=== PATIENT | female | born 1950 | race Caucasian/White ===

== ENCOUNTER 2016-11-19 08:37 | Emergency (ER) | payer BC, MEDICARE ==
[~2016-11-19] VITALS: Ht 149.9 cm; Wt 83.9 kg
[~2016-11-19 08:37] MED LIST: ACET-732 PO; ALLO300T2 PO; ASPI-558 PO; CALC600T86 PO; CYCL-208 PO; FERR324T4 PO; FOLI1TAB15 PO; HYDR-3995 PO; HYDR200T4 PO; MAGN400T6 PO; METO25TA3 PO; MORP30TA95 PO; MULT-33 PO; NYST10PO TOP; OMEG500C PO; OMEP20CA10 PO; OXYB5TAB25 PO; POLY17PO6 PO; PRED5TAB PO; [UNRECOGNIZED DRUG - CODE] PO
[2016-11-19 08:38] VITALS: TEMP 98.6; Ht 149.9 cm; Wt 83.9 kg
--- OUTSIDE RECORDS SUMMARY | 2016-11-19 08:41 | XMS REPORT | Continuity of Care Document ---
Author Author [facility] Organization [facility] Address Unknown Phone Unavailable Support Name Relationship Address Phone AMANDA GALLAGHER MD Caregiver [address] [place] [address] Unavailable BRADFORD VARELA MD Caregiver [address] [place] [address] Unavailable BRADFORD VARELA MD Caregiver [address] [place] [id number] Unavailable LAURAYAMINIKELVIN Next Of Kin [address] [place] [address] Insurance Providers Guarantor Jenny Wang Address [address] [place] [address] Email DENIED/NO TO PT [facility]AL [facility] Policy Number [id number] Subscriber's Name Ric Wang Relationship 01 Spouse Group Number [id number] Effective Date 15 Payer Medicare Policy Number [id number] Subscriber's Name Jenny Wang Relationship 18 Self Effective Date 93 Advance Directives Directive Response Recorded Date/Time Dr Jeffery Resuscitation Status Do Not Resuscitate 07/05/16 4:31pm Resuscitation Documents on File No 07/05/16 7:37pm DPOA for Healthcare Only Yes 07/05/16 7:37pm Living Will No 07/05/16 7:37pm Advanced Directive or Resuscitation Comments patient wants to be a DNR 7:37pm Problems Active Problems Medical Problem Onset Date Status Decubitus skin ulcer Unknown Fibromyalgia Unknown Fibromyalgia muscle pain Unknown Gout Unknown HTN (hypertension) Unknown Rheumatoid arthritis Unknown Rheumatoid lung disease Unknown Sjogren's disease Unknown UTI (urinary tract infection) Unknown Urinary incontinence Unknown Weakness generalized Unknown Medications Current Home Medications Medication Dose Units Route Directions Days Qty Instructions Start Date Acetaminophen (Tylenol) 500 Mg Tablet 500 Mg Oral As Needed 04/07 Acetaminophen/Hydrocodone Bitart (Wendel 10-325 Tablet) 10-325 Tablet 1-2 Tab Oral Every 6 Hours as needed for Pain 60 Tablet 07/20/16 Allopurinol 300 Mg Tablet 300 Mg Oral Daily 07/05/16 Aspirin (Aspir 81) 81 Mg Tablet. 81 Mg Oral Daily 04/07/10 Calcium Carbonate (Calcium) 600 Mg Tablet 600 Mg Oral Twice A Day 04/07/10 Cyclobenzaprine Hcl 10 Mg Tablet 10 Mg Oral Three Times A Day as needed for Prn Orders 04/07/10 Ferrous Sulfate 324 Mg Tablet. 324 Mg Oral Give With Breakfast 30 Tablet 07/20/16 Folic Acid 1 Mg Tablet 1 Mg Oral Twice A Day 60 Tablet 07/20/16 Hydroxychloroquine Sulfate 200 Mg Tablet 200 Mg Oral Twice Daily With Meals 60 Tablet 07/20/16 Magnesium Oxide 400 Mg Tablet 200 Mg Oral Daily 30 Tablet 07/20/16 Metoprolol Succinate (Toprol Xl) 25 Mg Tab.er.24h 25 Mg Oral Daily 30 Tablet 07/20/16 Morphine Sulfate (Morphine Sulfate Er) 30 Mg Tablet.er 60 Mg Oral Every 12 Hours 30 Days 07/20/16 Multivit,Ther Iron,Ca,Fa & Min (Thera-M Enhanced Tablet) 1 Tab Tablet 1 Tab Oral Daily 04/07/10 Nystatin 50,000,000 Unit Powder.ea. 1 Applic Topically Three Times A Day 10 Days 1 Tub 07/20/16 [place]-3 Fatty Acids (Fish Oil) 500 Mg Capsule. 1,000 Mg Oral Daily 04/07/10 Omeprazole 20 Mg Capsule. 20 Mg Oral Daily 07/05/16 Oxybutynin Chloride (Ditropan Xl) 5 Mg Tab.er.24 5 Mg Oral Daily 30 Days 30 Tablet 07/20/16 Polyethylene Glycol 3350 (Miralax) 17 Gm Powd.pack 17 Gm Oral Daily as needed for Prn Orders 07/01/16 Prednisone 5 Mg Tablet 5 Mg Oral Twice A Day 07/01/16 Sennosides (Senna) 8.6 Mg Tablet 17.2 Mg Oral Three Times A Day 04/07/10 Past Home Medications Medication Directions Ordered Status Acetaminophen/Hydrocodone Bitart (Wendel 10-325 Tablet) 10-325 Tablet, 1-2 Tab Oral Every 6 Hours as needed for Pain 07/05/16 Discontinued Ferrous Sulfate (Iron) 1 Tab Tablet, 65 Mg Oral Daily 04/07/10 Discontinued Folic Acid 0.4 Mg Tablet, 0.4 Mg Oral Twice A Day 04/07/10 Discontinued Furosemide 40 Mg Tablet, 40 Mg Oral Twice A Day 04/07/10 Discontinued Hydroxychloroquine Sulfate 200 Mg Tablet, 100 Mg Oral Bedtime 04/07/10 Discontinued Hydroxychloroquine Sulfate 200 Mg Tablet, 200 Mg Oral Every Morning 07/05/16 Discontinued Magnesium 250 Mg Tablet, 250 Mg Oral Daily 04/07/10 Discontinued Metoprolol Succinate 50 Mg Tab.er.24h, 50 Mg Oral Daily 07/05/16 Discontinued Morphine Sulfate (Morphine Sulfate Er) 30 Mg Tablet.er, 60 Mg Oral Every 12 Hours 07/05/16 Discontinued Potassium Chloride 10 Meq Capsule.sa, 10 Meq Oral Daily 04/07/10 Discontinued Social History Social History Problem Response Recorded Date/Time Onset Date Status Reason for Hospitalization Weakness 07/20/2016 12:49pm Not Applicable Not Applicable Has the pt used tobacco in the last 12 months No 07/05/2016 7:49pm Not Applicable Not Applicable Query Response Start Date Stop Date Smoking Status Never smoker Hospital Discharge Instructions Instructions: Care Instructions: Reason for Hospitalization: Weakness I was in the hospital because (patient own words): I was really weak. Discharge Diet: regular Discharge Activity: Up with assist Follow Up Appointments: Dr. Zoila Gallagher on 08/01/16 at 9:45 am for Hosp. follow-up. [address] [place] [address]. . Pending Lab / Results: No Pending Lab Patient Instructions: Continue with daily exercises Follow up with primary care physician within 2 weeks. Wound/Incision Care: Nystatin powder to bilateral abdominal folds. Mepilex with iodisorb and gauze to coccyx wound. Mepilex with aquacel silver and mepilex to right upper medial thigh. Durable Medical Equipment: No known equipment needed Pain Management/Treatment: Patient has narcotic prescription, and is stable with meds at this time. Expected Signs/Symptoms: Weakness Fatigue Pain Notify Physician If: you fall or are injured. Or if pain increases. During Business Hours:: Please call the physician's office at clinic number After Business Hours:: Please call [phone] and have the cell room operator page the physician. Condition at time of discharge: Good Plan of Care Discharge Date 07/20/16 1:15pm Disposition 03 TO [facility] NOT [facility] (SNF) Instructions/Education Provided Skin Wound Prescriptions See Medication Section Care Plan and Goals See Discharge Instructions Section Functional Status Query Response Date Recorded Mobility Status Transfer w/assist July 20, 2016 12:49pm Assistive Devices FWW AND WHEELCHAIR July 20, 2016 12:49pm Activity Limitations Weakness Pain July 20, 2016 12:49pm Feeding Ability Independent July 20, 2016 12:49pm Toileting Ability Assist July 20, 2016 12:49pm Grooming Ability Independent July 20, 2016 12:49pm Dressing Ability Assist July 20, 2016 12:49pm Driving Ability Dependent July 20, 2016 12:49pm Stair Climbing Ability Dependent July 20, 2016 12:49pm Ability to complete ADL's impeded by Impaired Mobility July 20, 2016 12:49pm Cognitive/Perceptual Impairments Impaired vision July 20, 2016 12:49pm Visual Assistive Devices Glasses With patient July 17, 2016 3:38pm Preferred Method of Learning Demonstration Listening July 17, 2016 3:38pm Allergies, Adverse Reactions, Alerts Allergen Type Severity Reaction Status Last Updated Clindamycin Allergy Mild JOINT PAIN Active 12/04/10 Azithromycin Allergy Mild JITTERS Active 12/04/10 Minocycline Allergy Unknown Active 12/04/10 Levofloxacin Allergy Mild JOINT PAIN Active 12/04/10 Immunizations Query Response on File Recorded Date/Time Hx Influenza Vaccination Y 04/201607/05/16 7:49pm Hx Pneumococcal Vaccination Y 04/201607/05/16 7:49pm Hx Influenza Vaccination Y 04/201607/05/16 7:49pm Influenza Vaccine Hx 04/201607/05/16 7:55pm Vital Signs Acute Vital Signs Vital Response Date/Time Temperature (Fahrenheit) 98.1 deg F (96.8 - 99.1) 07/20/2016 8:45am Temperature (Calculated Celsius) 36.19273 degrees C (36.0 - 37.3) 07/20/2016 8:45am Pulse Rate (adult) 76 bpm (60 - 100) 07/20/2016 8:45am Respiratory Rate 20 breaths/min (10 - 20) 07/20/2016 8:45am O2 Sat by Pulse Oximetry 95 % (90 - 100) 07/20/2016 8:45am Oxygen Delivery Method Nasal Cannula 07/19/2016 10:30pm Oxygen Delivery Method Room Air 07/20/2016 12:14am Oxygen Flow Rate 2.00 L/min 07/19/2016 10:30pm Blood Pressure 164/98 mm Hg 07/20/2016 8:45am Blood Pressure Source Automatic Cuff 07/20/2016 8:45am Height (Feet) 4 feet 07/18/2016 2:38pm Height (Inches) 10.00 inches 07/18/2016 2:38pm Weight (Kilograms) 79.000 kg 07/20/2016 12:15am Body Mass Index (BMI) 40.0 07/05/2016 7:34pm Results Laboratory Results Test Name Result Units Flags Reference Collection Date/Time Result Date/ Time Comments Neutrophils % (Manual) 65.0 % 33-66 07/04/2016 4:14am 07/04/2016 6: 04am Band Neutrophils % 1.0 % 0-6 07/02/2016 10:57am 07/02/2016 11:14am Lymphocytes % (Manual) 27.0 % 23-45 07/04/2016 4:14am 07/04/2016 6: 04am Monocytes % (Manual) 5.0 % 0-9.0 07/04/2016 4:14am 07/04/2016 6:04am Eosinophils % (Manual) 3.0 % 0-4 07/04/2016 4:14am 07/04/2016 6:04am Reactive Lymphocytes % 1.0 % H 0-0 07/02/2016 10:57am 07/02/2016 11: 14am Band Neutrophils # 0.1 T/MM3 07/02/2016 10:57am 07/02/2016 11:14am Absolute Neutrophils (Manual) 3.3 T/MM3 1.8-7.7 07/04/2016 4:14am 07/04 6:04am Lymphocytes # (Manual) 1.4 T/MM3 1-4.8 07/04/2016 4:14am 07/04/2016 6: 04am Monocytes # (Manual) 0.3 T/MM3 0-0.8 07/04/2016 4:14am 07/04/2016 6: 04am Eosinophils # (Manual) 0.2 T/MM3 0-0.5 07/04/2016 4:14am 07/04/2016 6: 04am Reactive Lymphocytes # 0.1 T/MM3 H 0-0 07/02/2016 10:57am 07/02/2016 11: 14am Red Cell Morphology Comment NORMAL 07/04/2016 4:1407/04/2016 6: 04am Anisocytosis 1+ 07/02/2016 10:57am 07/02/2016 11:14am Total Bilirubin 0.50 MG/DL 0.20-1.30 07/04/2016 4:1407/04/2016 4: 51am Alkaline Phosphatase 85 U/L 38-126 07/04/2016 4:1407/04/2016 4:51am Total Protein 5.2 G/DL L 6.3-8.2 07/04/2016 4:1407/04/2016 4:51am Albumin 2.4 G/DL L 3.5-5.0 07/04/2016 4:1407/04/2016 4:51am Globulin 2.8 G/DL 2.4-3.6 07/04/2016 4:1407/04/2016 4:51am Albumin/Globulin Ratio 0.9 RATIO L 1.1-2.2 07/04/2016 4:1407/04/2016 4:51am Aspartate Amino Transf (AST/SGOT) 40 U/L H 14-36 07/04/2016 4:1407/04 4:51am Alanine Aminotransferase (ALT/SGPT) 43 U/L 9-52 07/04/2016 4:1407/04 4:51am Procalcitonin 0.14 NG/ML 07/01/2016 1:13pm 07/01/2016 2:01pm PCT </= 0.5 ng/mL - sepsis not likely; PCT >0.5 and </=2 ng/mL - sepsis possible; PCT >2 ng/mL - sepsis likely; PCT >/=10 ng/mL - systemic inflammatory response - sepsis or septic shock highly indicated. Urine WBC 10-20 /HPF H 0-5 07/01/2016 1:08pm 07/01/2016 1:48pm Urine RBC 5-10 /HPF H 0-3 07/01/2016 1:08pm 07/01/2016 1:48pm Urine Squamous Epithelial Cells 0-5 07/01/2016 1:08pm 07/01/2016 1: 48pm Urine Bacteria 1+ H NEGATIVE 07/01/2016 1:08pm 07/01/2016 1:48pm Urine Culture Indicated CULT REFLEXED &SETUP 07/01/2016 1:08pm 1:48pm White Blood Count 6.1 T/MM3 4.5-11.0 07/06/2016 5:00am 07/06/2016 5: 43am Red Blood Count 3.84 M/MM3 L 4.00-5.20 07/06/2016 5:00am 07/06/2016 5: 43am Hemoglobin 12.4 GM/DL D 12-16 07/06/2016 5:00am 07/06/2016 5:43am Hematocrit 39.5 % 36-46 07/06/2016 5:00am 07/06/2016 5:43am Mean Corpuscular Volume 102.9 UM3 H 80-100 07/06/2016 5:00am 07/06/2016 5:43am Mean Corpuscular Hemoglobin 32.3 UUG 26-34 07/06/2016 5:00am 2016 5:43am Mean Corpuscular Hemoglobin Concent 31.4 GM/DL 31-37 07/06/2016 5:00am 07/06/2016 5:43am RDW Standard Deviation 53.0 FL H 36.9-50.2 07/06/2016 5:00am 07/06/2016 5:43am Platelet Count 176 T/MM3 130-400 07/06/2016 5:00am 07/06/2016 5:43am Mean Platelet Volume 11.2 UM3 9.4-12.4 07/06/2016 5:00am 07/06/2016 5: 43am Neutrophils (%) (Auto) 62.2 % 33-66 07/06/2016 5:00am 07/06/2016 5: 43am Lymphocytes (%) (Auto) 25.2 % 23-45 07/06/2016 5:00am 07/06/2016 5: 43am Monocytes (%) (Auto) 9.9 % H 0-9.0 07/06/2016 5:00am 07/06/2016 5:43am Eosinophils (%) (Auto) 2.3 % 0-4 07/06/2016 5:00am 07/06/2016 5:43am Basophils (%) (Auto) 0.2 % 0-2 07/06/2016 5:00am 07/06/2016 5:43am Immature Granulocyte % (Auto) 0.2 % 0.0-0.5 07/06/2016 5:00am 2016 5:43am Absolute Neutrophils (auto) 3.8 T/MM3 1.8-7.7 07/06/2016 5:00am 2016 5:43am Absolute Lymphocytes (auto) 1.6 T/MM3 1-4.8 07/06/2016 5:00am 2016 5:43am Absolute Monocytes (auto) 0.6 T/MM3 0-0.8 07/06/2016 5:00am 07/06/2016 5:43am Absolute Eosinophils (auto) 0.1 T/MM3 0-0.5 07/06/2016 5:00am 2016 5:43am Absolute Basophils (auto) 0.0 T/MM3 0-0.2 07/06/2016 5:00am 07/06/2016 5:43am Absolute Immature Granulocyte (auto 0.01 T/MM3 0.00-0.03 07/06/2016 5: 00am 07/06/2016 5:43am Icterus Index < 2 0-7 07/06/2016 5:00am 07/06/2016 5:38am Chemistry Specimen Hemolysis < 15 0-25 07/06/2016 5:00am 07/06/2016 5 :38am 0-25: Specimen Exhibited No Hemolysis. Turbidity < 20 0-20 07/06/2016 5:00am 07/06/2016 5:38am Sodium Level 141 MEQ/L 134-144 07/06/2016 5:00am 07/06/2016 5:38am Potassium Level 4.0 MEQ/L 3.6-5 07/06/2016 5:00am 07/06/2016 5:38am Chloride Level 104 MEQ/L 98-107 07/06/2016 5:00am 07/06/2016 5:38am Carbon Dioxide Level 32 MEQ/L H 22-30 07/06/2016 5:00am 07/06/2016 5: 38am Anion Gap 5 MEQ/L 5-15 07/06/2016 5:00am 07/06/2016 5:38am Blood Urea Nitrogen 9.0 MG/DL D 7-17 07/06/2016 5:00am 07/06/2016 5:47am Creatinine 0.6 MG/DL L 0.7-1.2 07/06/2016 5:00am 07/06/2016 5:38am BUN/Creatinine Ratio 15 RATIO 6-26 07/06/2016 5:00am 07/06/2016 5:38am Glomerular Filtration Rate Calc 100 07/06/2016 5:00am 07/06/2016 5: 38am Glucose Level 73 MG/DL 65-110 07/06/2016 5:00am 07/06/2016 5:38am Calculated Osmolality 269 MOSM/KG 261-280 07/06/2016 5:00am 07/06/2016 5:38am Calcium Level 9.5 MG/DL D 8.4-10.2 07/06/2016 5:00am 07/06/2016 5:47am Urine Collection Type VOIDED-NOT CC-MIDSTR 07/07/2016 1:24am 2016 1:32am Urine Color YELLOW YELLOW 07/07/2016 1:24am 07/07/2016 1:32am Urine Turbidity CLEAR CLEAR 07/07/2016 1:24am 07/07/2016 1:32am Urine Specific [place] 1.015 1.015-1.025 07/07/2016 1:24am 2016 1:32am Urine pH 8.0 5.0-8.0 07/07/2016 1:24am 07/07/2016 1:32am Urine Leukocyte Esterase NEGATIVE NEGATIVE 07/07/2016 1:24am 2016 1:32am Urine Nitrite NEGATIVE NEGATIVE 07/07/2016 1:24am 07/07/2016 1:32am Urine Protein NEGATIVE NEGATIVE 07/07/2016 1:24am 07/07/2016 1:32am Urine Glucose (UA) NEGATIVE NEGATIVE 07/07/2016 1:24am 07/07/2016 1: 32am Urine Ketones NEGATIVE NEGATIVE 07/07/2016 1:24am 07/07/2016 1:32am Urine Urobilinogen 0.2 EU/DL NORMAL 07/07/2016 1:24am 07/07/2016 1: 32am Urine Bilirubin NEGATIVE NEGATIVE 07/07/2016 1:24am 07/07/2016 1: 32am Urine Blood NEGATIVE NEGATIVE 07/07/2016 1:24am 07/07/2016 1:32am Urinalysis Comment MICROSCOPIC NOT IND. 07/07/2016 1:24am 2016 1:32am Microbiology Results Procedure Source Organism/Result Collection Date/Time Result Date/Time Result Status Blood Culture Peripheral/Iv Start NO GROWTH AFTER 5 DAYS 07/01/2016 1:13pm 07/06/2016 1:18pm Final Urine Culture Urine, Straight Cath ESCHERICHIA COLI 07/01/2016 1:48pm 07/2016 6:40am Final Procedures No known history of procedures. Encounters Encounter Location Arrival/Admit Date Discharge/Depart Date Attending Provider Discharged Inpatient [facility] 07/05/16 2:25pm 07/20/16 1:15pm BRADFORD VARELA MD Discharged Inpatient [facility] 07/02/16 1:52pm 07/05/16 2:24pm AMANDA GALLAGHER MD
--- OUTSIDE RECORDS SUMMARY | 2016-11-19 08:42 | XMS REPORT | Continuity of Care Document ---
Author Author [facility] Organization [facility] Address Unknown Phone Unavailable Allergies Medications Problems Procedures Results Encounters ACCT No. Visit Date/Time Discharge Status Pt. Type Provider Facility Loc./Unit Complaint [id number] 09/19/2013 09:07:00 09/19/2013 23 :59:59 CLS Outpatient
--- NOTE | 2016-11-19 08:56 | NUR ---
REPORT REC'D FROM EDD MORRISSEY. THIS RN WILL RESUME CARE.
[2016-11-19] MEDS ORDERED: METO-275 PO (09:04)
--- OUTSIDE RECORDS SUMMARY | 2016-11-19 09:05 | XMS REPORT | Continuity of Care Document ---
Author Author [facility] Organization [facility] Address Unknown Phone Unavailable Allergies Medications Problems Procedures Results Encounters ACCT No. Visit Date/Time Discharge Status Pt. Type Provider Facility Loc./Unit Complaint [id number] 09/19/2013 09:07:00 09/19/2013 23 :59:59 CLS Outpatient
[2016-11-19] MEDS ORDERED: SENN-152 PO (09:07)
[2016-11-19] MEDS ORDERED: FERR-70 PO (09:08)
[2016-11-19] MEDS ORDERED: HYDR200T4 PO ×2 (09:09)
[2016-11-19] MEDS ORDERED: FOLI1TAB15 PO (09:11)
[2016-11-19] MEDS ORDERED: MAGN400T6 PO (09:13)
[2016-11-19] MEDS ORDERED: MORP30TA95 PO (09:15)
[2016-11-19] MEDS ORDERED: HYDR-4078 PO (09:16)
[2016-11-19] MEDS ORDERED: MIRA25TA PO (09:20)
--- NOTE | 2016-11-19 09:22 | NUR ---
PROVIDER DR. NOLAN AT BEDSIDE FOR EXAM.
[2016-11-19 09:44] LABS: BASOPHILS % (AUTO) 0.2 % (0-2); EOSINOPHILS # (AUTO) 0.2 T/MM3 (0-0.5); EOSINOPHILS % (AUTO) 1.8 % (0-4); HGB - HEMOGLOBIN 15.9 GM/DL (12-16); IMMATURE GRANULOCYTE # (AUTO) 0.08 T/MM3 (0.00-0.03); IMMATURE GRANULOCYTE % (AUTO) 0.8 % (0.0-0.5); LYMPHOCYTES # (AUTO) 2.5 T/MM3 (1-4.8); LYMPHOCYTES % (AUTO) 26.7 % (23-45); MEAN CORPUSCULAR HGB 33.1 UUG (26-34); MEAN CORPUSCULAR HGB CONC(MCHC 31.8 GM/DL (31-37); MEAN CORPUSCULAR VOLUME 104.2 UM3 (80-100); MEAN PLATELET VOLUME 11.8 UM3 (9.4-12.4); MONOCYTES # (AUTO) 0.9 T/MM3 (0-0.8); MONOCYTES % (AUTO) 8.9 % (0-9.0); NEUTROPHILS #(AUTO)-ABSOLUTE 5.9 T/MM3 (1.8-7.7); NEUTROPHILS % (AUTO) 61.6 % (33-66); WBC - WHITE BLOOD COUNT 9.5 T/MM3 (4.5-11.0)
--- NOTE | 2016-11-19 09:46 | ERPDOC ---
Departure Disposition Decision Date: November 19, 2016 Disposition Decision Time: 11:30 Disposition: 02 TO [facility] Impression Impression Impression: Primary Impression: Ribs, multiple fractures Encounter type: initial encounter Fracture type: closed Laterality: bilateral Qualified Codes: S22.43XA - Multiple fractures of ribs, bilateral, initial encounter for closed fracture Additional Impression: Pelvic fracture Encounter type: initial encounter Pelvic bone location: unspecified part of pelvis Fracture type: closed Fracture alignment: nondisplaced Qualified Codes: S32.9XXA - Fracture of unspecified parts of lumbosacral spine and pelvis , initial encounter for closed fracture Severity: Moderate Condition: Improved Seen By: Physician only Referrals: AMANDA SO MD (Family) Problems/Meds/Labs Reviewed?: Yes Medications reviewed and manag: Yes Follow up care ordered?: Yes Mental Status: Alert, Oriented Critical Care Note Total Time (mins): 37 Critical Care Spent: [id number] care of pt, Reviewing test results, Discuss the case w/staff, Documenting the MR, Discussion w/ family/DPOA During this visit the pt was: At Risk of Deterioration HPI - General Medical General Chief Complaint: Chest Injury Stated Complaint: ABD PAIN Time Seen by Provider: 08:55 Source: patient, family Exam Limitations: no limitations HPI - General Medical Initial Comments 66-year-old female presents to the emergency department with a chief complaint of left upper quadrant pain. Patient has suffered 2 mechanical falls in the past week with the most recent being on of this past week. Patient has tripped getting out of her wheelchair each time. She denies striking her head, neck pain, or loss of consciousness. Patient notes moderate pain in the left upper quadrant. No radiation. Pain is sharp. Pain increases with movement and improves with rest and positioning and analgesia. Patient denies any other injuries. No other complaints or associated symptoms. Patient was at home when her symptoms began. Symptoms have been persistent in nature since onset. Patient is not anticoagulated. Occurred At: home Onset: Constant Allergies: Coded Allergies: azithromycin (Verified Allergy, Mild, JITTERS, 11/19/16) clindamycin (Verified Allergy, Mild, JOINT PAIN, 11/19/16) levofloxacin (Verified Allergy, Mild, JOINT PAIN, 11/19/16) levothyroxine (Verified Allergy, Unknown, 11/19/16) minocycline (Verified Allergy, Unknown, 11/19/16) Past History Patient Surgical History R heart cath 2006 MILE 1999 Colonoscopy 2008 Heart cath 1999 R total knee replacement Past Medical History Metabolic: gout, hypertension Respiratory: pulmonary embolus GI: GERD Neurological: fibromyalgia Musculoskeletal: rheumatoid arthritis Surgical History Cardiac: cardiac cath Joint: knee Family History Family PMH: FOUND: CHF, CVA, alcohol abuse, cancer, hypertension, other Vaccines Hx Influenza Vaccination: Yes (04/2016) Hx Pneumococcal Vaccination: Yes (04/2016) Social History Smoking Status: Never smoker Does patient use chewing tobac: No Substance Use Type: does not use Alcohol Intake: none Review of Systems Constitutional Constitutional: DENIES: chills, fever Eyes General: DENIES: erythema, exudate Lids/Accessories: DENIES: erythema, swelling Vision: DENIES: acuity, blurring ENMT Ears: DENIES: drainage, erythema Hearing: DENIES: hearing loss Balance: DENIES: ataxia, falling to one side Sinuses: DENIES: congestion, pain Nose: DENIES: nosebleeds, pain Mouth/Throat: DENIES: painful swallowing, sore throat Teeth: DENIES: pain Jaw: DENIES: pain Cardiovascular Cardiac: DENIES: chest pain, dyspnea on exertion Rhythm/Rate: DENIES: irregular beat, palpitations Vascular: DENIES: pedal edema, unilateral swelling Pulmonary Respiratory: DENIES: cough, dyspnea, pleuritic chest pain, sputum GI Upper Abdomen: pain, DENIES: nausea, vomiting Lower Abdomen: DENIES: diarrhea, pain General: DENIES: dysuria, frequency Musculoskeletal General: tenderness, DENIES: joint pain Integumentary Skin: DENIES: itching, rash Neurological General: DENIES: change in strength, headache, numbness, weakness Psychiatric Psychiatric: DENIES: emotional instability, suicidal ideation/attempt Endocrine Endocrine: DENIES: polydipsia, polyphagia Hematologic/Lymphatic Hematologic/Lymphatic: DENIES: frequent nosebleeds, lymphadenopathy Allergic/Immunological Allergic/Immunoligical: DENIES: allergic reactions, hives Physical Exam General General Nourishment: well nourished, well developed, appears stated age, no acute distress, adult General Body Habitus: well groomed Vitals and Pain First Documented Vital Signs Date Time Temp Pulse Resp B/P Pulse Ox O2 Delivery O2 Flow Rate FiO2 11/19/16 08:38 98.6 76 20 183/81 93 Room Air 11/19/16 10:03 2.00 Weight: Kilograms: 83.900 Height (feet): 4 Height (inches): 11.00 Triage Pain Scale: RN VS reviewed by Provider: Yes Normal Exams: Head: Normocephalic w/o trauma Eyes: Pupils are PERRLA w/ EOMI, No scleral icterus, irritation, or foreign bodies noted ENMT: No facial trauma, nasal exudates, pharyngeal erythema, or exudates are noted Dental: No fractured, loose, or missing teeth noted Neck: Full range of motion, without adenopathy, JVD, bruits or thyromegaly Chest/Resp: Clear all browne, with good airflow, and symmetry bilaterally CV: Regular rate and rhythm, without murmur or gallop, Pulses 2+ all extremities, capillary refill, <2 seconds all ext., no pedal edema noted Abdomen: Bowel sounds positive, non-distended, no hepatosplenomegaly, masses or bruits noted Lymphatic: No lymphadenopathy, or lymphedema noted Musculoskeletal: No tenderness, or deformity noted, good range of motion, all extremities Integumentary: No rashes, hives, or bruising noted, hair and nails, without abnormality Neurologic: Patient is alert, and oriented, cranial nerves, motor/sensory/ cerebellar, exams w/o gross deficits, to observation Psychiatric: Patient exhibits, appropriate attention, emotion and affect Abdomen (brief) Abdominal Brief: FOUND: soft Comments Soft. Mild left upper quadrant tenderness to palpation. No rebound or guarding. No CVA tenderness. Nondistended. Bowel sounds active. Musculoskeletal (brief) Comments L lateral ribs tender to palpation without crepitus. Pelvis - stable to compression. Differential Diagnoses Considering: Medication Effect, Metabolic, Other (abdominal pain, trauma) Progress Results/Orders Orders Procedure Category Date Status Time Cbc W/Auto LAB 11/19/16 Complete Diff-Reflex Manual Cmp - Comprehensive LAB 11/19/16 Complete Metabolic Lipase LAB 11/19/16 Complete Catheterize For Ua ALEXIS 11/19/16 In Process 09:28 Ua, Dip Wreflex LAB 11/19/16 Complete Microsc & Fagoting Machine Operator 09:28 EKG EKG 11/19/16 Logged Normal Saline (Ns) PHA 11/19/16 Complete 10:[address] 11/19/16 Taken Chest/Abdomen/Pelvis 10:08 Morphine Sulfate PHA 11/19/16 Complete (Morphine) 12:15 Ondansetron Inj PHA 11/19/16 Complete (Zofran) 12:15 Lab Results Laboratory Tests Test 11/19/16 08:20 11/19/16 10:29 White Blood Count 9.5T/MM3 Red Blood Count 4.80M/MM3 Hemoglobin 15.9GM/DL Hematocrit 50.0% Mean Corpuscular Volume 104.2UM3 Mean Corpuscular Hemoglobin 33.1UUG Mean Corpuscular Hemoglobin Concent 31.8GM/DL RDW Standard Deviation 57.8FL Platelet Count 198T/MM3 Mean Platelet Volume 11.8UM3 Immature Granulocyte % (Auto) 0.8% Neutrophils (%) (Auto) 61.6% Lymphocytes (%) (Auto) 26.7% Monocytes (%) (Auto) 8.9% Eosinophils (%) (Auto) 1.8% Basophils (%) (Auto) 0.2% Absolute Immature Granulocyte (auto 0.08T/MM3 Absolute Neutrophils (auto) 5.9T/MM3 Absolute Lymphocytes (auto) 2.5T/MM3 Absolute Monocytes (auto) 0.9T/MM3 Absolute Eosinophils (auto) 0.2T/MM3 Absolute Basophils (auto) 0.0T/MM3 Turbidity < 20 Sodium Level 146MEQ/L Potassium Level 4.6MEQ/L Chloride Level 100MEQ/L Carbon Dioxide Level 30MEQ/L Anion Gap 16MEQ/L Blood Urea Nitrogen 18.0MG/DL Creatinine 0.7MG/DL Glomerular Filtration Rate Calc 83 BUN/Creatinine Ratio 26RATIO Glucose Level 113MG/DL Calculated Osmolality 284MOSM/KG Calcium Level 9.3MG/DL Total Bilirubin 1.20MG/DL Icterus Index < 2 Aspartate Amino Transf (AST/SGOT) 76U/L Alanine Aminotransferase (ALT/SGPT) 98U/L Alkaline Phosphatase 162U/L Total Protein 7.4G/DL Albumin 4.3G/DL Globulin 3.1G/DL Albumin/Globulin Ratio 1.4RATIO Lipase 40U/L Chemistry Specimen Hemolysis 16 Urine Collection Type Straight cath Urine Color Yellow Urine Turbidity Clear Urine pH 7.5 Urine Specific [place] 1.010 Urine Protein Negative Urine Glucose (UA) Negative Urine Ketones Negative Urine Blood Negative Urine Nitrite Negative Urine Bilirubin Negative Urine Urobilinogen 0.2EU/DL Urine Leukocyte Esterase Negative Urinalysis Comment Microscopic not ind. Medications Current ED Medications Sodium Chloride (NS) 500 ml @ 999 mls/hr Q31M ONCE IV Last administered on 10:15; Start 11/19/16 at 10:00; Stop 11/19/16 at 10:36; Status DC Morphine Sulfate (Morphine) 4 mg O ONCE IV Last administered on 11/19/16 12: 17; Start 11/19/16 at 12:15; Stop 11/19/16 at 12:16; Status DC Ondansetron HCl (Zofran) 4 mg O ONCE IV Last administered on 11/19/16 12:15; Start 11/19/16 at 12:15; Stop 11/19/16 at 12:16; Status DC Progress Progress Labs / imaging were discussed in detail with the patient and questions are answered. Patient declined IV contrasted CT study. CT study reveals multiple rib and pelvic fractures. Patient is discussed with Dr. Miner who is in agreement with the current plan of management to transfer the patient to a Level 1 Trauma Center. Patient is given gentle IV hydration. She is given parental narcotic and antiemetic medications intravenously with improvement of symptoms. Patient is discussed with Dr. Forrest of [facility] who agrees to accept the patient as a trauma. Patient and family are in agreement with the current plan of management. Risks versus benefits of transfer is discussed in detail with the patient and family and questions are answered. Patient is stable for transfer to [facility] as a trauma patient. 37 minutes of critical care time was assessed to the patient due to complex medical decision-making, repeated assessment at the bedside, and the potential for decompensation. Patient is transferred to a Level I Trauma Center for further evaluation and treatment. EKG EKG : Rate: 60-100 Rhythm: sinus [place]: left QRS: normal Intervals: normal ST/T: normal Interpreted by: signing physician CT CT : CT: Chest no contrast Interpretation: Abnormal (CT chest/abdomen/pelvis: Rib fractures 3 through 10 on the right anteriorly and laterally. Right sided rib fractures 7, 8, 9. Pelvic fractures involving the left inferior pubic ramus, both superior pubic from eye and left iliac wing. Old right inferior pubic rami fracture. No other acute processes noted currently.), Faxed Report JOSSY NOLAN DO November 19, 2016 09:45
[2016-11-19 09:54] LABS: ALBUMIN 4.3 G/DL (3.5-5.0); ALBUMIN/GLOBULIN RATIO 1.4 RATIO (1.1-2.2); ALKALINE PHOSPHATASE 162 U/L (38-126); ALT (SGPT) 98 U/L (9-52); ANION GAP 16 MEQ/L (5-15); AST (SGOT) 76 U/L (14-36); BUN/CREATININE RATIO 26 RATIO (6-26); CALCIUM 9.3 MG/DL (8.4-10.2); CHLORIDE 100 MEQ/L (98-107); CO2 - CARBON DIOXIDE 30 MEQ/L (22-30); CREATININE 0.7 MG/DL (0.7-1.2); GLOMERULAR FILTRATION RATE 83; GLUCOSE 113 MG/DL (65-110); LIPASE 40 U/L (23-300); POTASSIUM 4.6 MEQ/L (3.6-5); SODIUM 146 MEQ/L (134-144); TOTAL PROTEIN 7.4 G/DL (6.3-8.2)
[2016-11-19] MEDS ORDERED: NORMAL SALINE 500 ML IV ONE (10:00)
--- NOTE | 2016-11-19 10:34 | NUR ---
CT PT TO CT BY CART AT THIS TIME.
[2016-11-19 10:36] LABS: BLOOD, URINE NEGATIVE (NEGATIVE); COLOR,URINE YELLOW (YELLOW); LEUKOCYTE ESTERASE ,URINE NEGATIVE (NEGATIVE); NITRITE,URINE NEGATIVE (NEGATIVE); UROBILINOGEN,URINE 0.2 EU/DL (NORMAL)
--- NOTE | 2016-11-19 10:46 | NUR ---
RETURN PT RETURNED FROM CT BY CART AT THIS TIME.
--- NOTE | 2016-11-19 10:47 | NUR ---
IVL CT REPORTS THAT IV ACCIDENTALLY PULLED OUT WHILE TRANSFERRING PT BACK TO BED. PROVIDER NOTIFIED. ORDERS REC'D TO HOLD ON RESTARTING IVL PER DR. NOLAN.
--- NOTE | 2016-11-19 11:43 | NUR ---
PROVIDER DR. NOLAN AT BEDSIDE TO SPEAK WITH PT AND FAMILY.
[2016-11-19] MEDS ORDERED: ONDANSETRON 4mg/2ml INJECTION IV ONE (12:15)
[2016-11-19] MEDS ORDERED: MORPHINE SULFATE 4 MG SYRINGE IV ONE (12:15)
--- NOTE | 2016-11-19 12:34 | NUR ---
REPORT CALLED TO EDD EDDY AT [facility]. DENIES QUESTIONS. ADVISED ETA OF APPROX 1315.
--- NOTE | 2016-11-19 12:37 | NUR ---
[facility] REQUESTED FOR TRANSFER TO [facility] AT THIS TIME.
--- NOTE | 2016-11-19 12:48 | NUR ---
EMS ARRIVED TO ER, RM 2 AT THIS TIME. REPORT GIVEN TO EMS PERSONNEL, DENY QUESTIONS.
[2016-11-19 12:56] VITALS: BP 190/82; PULSE 75; RESP 18; O2SAT 95
--- NOTE | 2016-11-19 12:56 | NUR ---
TRANSFER PT EXITS ER BY COT PER [facility] AT THIS TIME.
--- NOTE | 2016-11-20 11:38 | DI ---
Indication: ITS.REASON: fall three days ago with ongoing left abdominal pain PROCEDURE: CT CHEST/ABDOMEN/PELVIS W/O: Encounter: Subsequent Comparison: None Technique: Axial CT images were performed through the chest, abdomen and pelvis without intravenous contrast. Coronal and sagittal two-dimensional reformats. Automated Exposure Control and Iterative Reconstruction dose reducing techniques were utilized. Findings: Chest: No pneumothorax. Bilateral lower lobe atelectasis. No mediastinal hematoma. Heart is mildly enlarged. No pericardial effusion. Abdomen/pelvis: No free air or intraperitoneal hemorrhage. Gallstones within the mildly distended gallbladder. No obvious hepatic, splenic or renal laceration although evaluation is quite limited without IV contrast. Fatty replaced pancreas. No abdominal or pelvic lymphadenopathy. Fat-containing ventral hernia. No free fluid in the pelvis. No bowel obstruction. Bone windows show chronic bilateral inferior pubic ramus fractures with malunion on the left. Chronic appearing deformity in the left sacrum and iliac wing with malunion of fractures. Impression: No acute disease process seen. There is a preliminary report by [facility]. .
== END 2016-11-19 12:56 | disposition short-term general hospital (02) ==
LOC: ED 08:37
DX: S22.43XA Multiple fractures of ribs, bilateral, initial encounter for closed fracture (principal); S32.9XXA Fracture of unspecified parts of lumbosacral spine and pelvis, initial encounter for closed fracture; W01.0XXA Fall on same level from slipping, tripping and stumbling without subsequent striking against object, initial encounter; Y93.89 Activity, other specified; Y92.009 Unspecified place in unspecified non-institutional (private) residence as the place of occurrence of the external cause; Y99.8 Other external cause status
CPT/HCPCS: 51701; 71250; 74176; 80053; 81003; 83690; 85025; 93005; 96374; 96375; 99285; J2405

== ENCOUNTER 2017-09-17 12:15 | Inpatient (IN) ==
--- NOTE | 2017-09-17 13:05 | Emergency Department Report ---
General Adult HPI - General Chief complaint: Medical Emergency Stated complaint: fever,vomitting,cp,headache Time Seen by Provider: 09/17/17 13:05 - Related Data Home Medications Medication Instructions Recorded Confirmed Acetaminophen [Acetaminophen Extra 500 mg PO Q6H PRN 09/17/17 09/17/17 Strength] Albuterol/Ipratropium [Duoneb] 1 unit AEROSOL Q4H PRN 09/17/17 09/17/17 Alendronate [Fosamax] 70 mg PO Q7D 09/17/17 09/17/17 Allopurinol [Zyloprim] 300 mg PO NOON 09/17/17 09/17/17 Aspirin [Aspirin EC] 81 mg PO DAILY 09/17/17 09/17/17 Benzonatate [Tessalon Perles] 100 mg PO TID PRN 09/17/17 09/17/17 Calcium Carbonate 600 mg PO BID 09/17/17 09/17/17 Cholecalciferol (Vitamin D3) 1,000 unit PO DAILY 09/17/17 09/17/17 [Vitamin D3] Cyclobenzaprine [Flexeril] 10 mg PO TID PRN 09/17/17 09/17/17 Docusate Sodium [Colace] 100 mg PO NOON 09/17/17 09/17/17 Escitalopram Oxalate [Lexapro] 10 mg PO DAILY 09/17/17 09/17/17 Ferrous Sulfate [Iron] 325 mg PO WB 09/17/17 09/17/17 Folic Acid [Folate] 1 mg PO DAILY 09/17/17 09/17/17 Furosemide [Lasix 40 mg Tab] 40 mg PO DAILY 09/17/17 09/17/17 HydrOXYzine [Atarax] 25 mg PO HS 09/17/17 09/17/17 Hydrocodone/APAP 10/325 [[place] 2 tab PO HS 09/17/17 09/17/17 10/325] Hydrocodone/APAP 10/325 [[place] 2 tab PO Q4H PRN 09/17/17 09/17/17 10/325] Hydroxychloroquine [Plaquenil] 100 mg PO PM 09/17/17 09/17/17 Hydroxychloroquine [Plaquenil] 200 mg PO QAM 09/17/17 09/17/17 Loratadine [Claritin] 10 mg PO DAILY 09/17/17 09/17/17 Magnesium Hydroxide [Milk of 2,400 mg PO DAILY PRN 09/17/17 09/17/17 Magnesia] Methyl Salicylate/Menthol [Icy Hot 1 applicatio TP BID PRN 09/17/17 09/17/17 Cream] Metoprolol Succinate [Toprol Xl] 25 mg PO DAILY 09/17/17 09/17/17 Mirabegron [Myrbetriq] 25 mg PO HS 09/17/17 09/17/17 Morphine Sulfate 30 mg PO Q3H PRN 09/17/17 09/17/17 Morphine Sulfate [Morphine Sulfate 60 mg PO BID 09/17/17 09/17/17 ER] Multivitamin [One Daily] 1 tab PO WS 09/17/17 09/17/17 Nitrofurantoin. [Macrobid] 100 mg PO DAILY 09/17/17 09/17/17 Nystatin Cream [Mycostatin] 1 applicatio TP BID PRN 09/17/17 09/17/17 [place]-3/Dha/Epa/Fish Oil [Fish Oil 1,000 mg PO HS 09/17/17 09/17/17 1,000 mg Softgel] Omeprazole 20 mg PO ACB 09/17/17 09/17/17 Ondansetron HCl [Zofran] 4 mg PO Q6H PRN 09/17/17 09/17/17 PE/Shark Liver Oil/Glyc/Wh.pet 1 applicatio RECTALLY QID PRN 09/17/17 09/17/17 [Hemorrhoidal Cream] Peg 3350 238 G Bottle [Miralax] 8.6 gm PO DAILY 09/17/17 09/17/17 Peg 3350 238 G Bottle [Miralax] 17 gm PO DAILY PRN 09/17/17 09/17/17 PredniSONE [Deltasone 2.5 mg] 2.5 mg PO PM 09/17/17 09/17/17 PredniSONE [Deltasone 5 mg] 5 mg PO QAM 09/17/17 09/17/17 Allergies Allergy/AdvReac Type Severity Reaction Status Date / Time azithromycin Allergy Mild JITTERS Verified 09/17/17 12:40 clindamycin Allergy Mild JOINT PAIN Verified 09/17/17 12:40 levofloxacin Allergy Mild JOINT PAIN Verified 09/17/17 12:40 minocycline Allergy Unknown Verified 09/17/17 12:40 lidocaine Allergy Verified 09/17/17 13:08 levothyroxine Allergy Unknown Uncoded 09/17/17 12:40 [facility] Patient Stated Medical History Sepsis Yes: UROSEPSIS Course Vital Signs Temperature 99.3 F 09/17/17 12:39 Pulse Rate 72 09/17/17 12:39 Respiratory Rate 22 09/17/17 12:39 Blood Pressure 133/64 09/17/17 12:39 Pulse Oximetry 88 L 09/17/17 12:39 Temperature 97.6 F 09/17/17 15:32 Pulse Rate 75 09/17/17 15:32 Respiratory Rate 18 09/17/17 15:32 Blood Pressure 104/52 09/17/17 15:32 Pulse Oximetry 93 09/17/17 15:32 Medical Decision Making - Lab Data Result diagrams: 09/17/17 13:36 09/17/17 13:36 Lab Results 09/17/17 09/17/17 09/17/17 Range/Units 13:36 13:36 13:36 WBC 13.8 H (4.5-11.0) T/MM3 RBC 4.52 (4.00-5.20) M/MM3 Hgb 14.6 (12-16) GM/DL Hct 47.1 H (36-46) % MCV 104.2 H (80-100) UM3 MCH 32.3 (26-34) UUG MCHC 31.0 (31-37) GM/DL RDW Std Deviation 58.5 H (36.9-50.2) FL Plt Count 108 L (130-400) T/MM3 MPV 11.3 (9.4-12.4) UM3 Immature Gran % (Auto) Not performed Neut % (Auto) Not performed Lymph % (Auto) Not performed [place] % (Auto) Not performed Eos % (Auto) Not performed Baso % (Auto) Not performed Neut # (Auto) Not performed Lymph # (Auto) Not performed [place] # (Auto) Not performed Eos # (Auto) Not performed Baso # (Auto) Not performed Abs Immat Gran (auto) Not performed Neutrophils % (Manual) 85.0 H (33-66) % Band Neutrophils % 3.0 (0-6) % Lymphocytes % (Manual) 5.0 L (23-45) % Monocytes % (Manual) 7.0 (0-9.0) % Neutrophils # (Manual) 11.7 H (1.8-7.7) T/MM3 Band Neutrophils # 0.4 T/MM3 Lymphocytes # (Manual) 0.7 L (1-4.8) T/MM3 Monocytes # (Manual) 1.0 H (0-0.8) T/MM3 Macrocytosis 1+ RBC Morph Comment Abnormal D-Dimer 413 H (0-230) NG/ML Turbidity < 20 (0-20) Sodium 139 (134-144) MEQ/L Potassium 3.4 L (3.6-5) MEQ/L Chloride 98 (98-107) MEQ/L Carbon Dioxide 31 H (22-30) MEQ/L Anion Gap 10 (5-15) MEQ/L BUN 16.0 (7-17) MG/DL Creatinine 0.7 (0.7-1.2) mg/dL GFR Calculation 83 BUN/Creatinine Ratio 23 (6-26) RATIO Glucose 89 (65-110) MG/DL Calculated Osmolality 268 (261-280) MOSM/KG Calcium 8.4 (8.4-10.2) MG/DL Total Bilirubin 1.20 (0.20-1.30) MG/DL Icterus Index < 2 (0-7) AST 56 H (14-36) U/L ALT 50 H (1-35) U/L Alkaline Phosphatase 122 (38-126) U/L Troponin I < 0.012 (0-0.12) ng/ml NT-Pro-B Natriuret Pep 522 H (0-175) pg/mL Total Protein 6.7 (6.3-8.2) g/dL Albumin 3.6 (3.5-5.0) g/dL Globulin 3.1 (2.4-3.6) G/DL Albumin/Globulin Ratio 1.2 (1.1-2.2) RATIO Plasma Lactate 2.2 (0.6-2.2) MMOL/L Specimen Hemolysis < 15 (0-25) Disposition Clinical Impression: Pneumonia of both lower lobes Qualifiers: Pneumonia type: due to unspecified organism Qualified Code(s): J18.1 - Lobar pneumonia, unspecified organism Disposition: To [facility] Acute Care Condition: Stable - Seen By: physician
[2017-09-17] MEDS ORDERED: NITROGLYCERIN 0.4 MG SUBLINGUAL TABLET SL PRN (13:10)
[2017-09-17] MEDS ORDERED: ASPIRIN 81 MG CHEWABLE TABLET PO ONE (13:10)
[2017-09-17] MEDS: SALINE FLUSH 10ml SYRINGE IVF PRN ×4 (13:25→18:30)
[2017-09-17] MEDS ORDERED: MORPHINE SULFATE 4mg INJECTION IVP ONE (13:26)
[2017-09-17] MEDS ORDERED: CEFEPIME 1 GM in NS 100 ML IV ONE (14:35)
[2017-09-17] MEDS ORDERED: SALINE FLUSH 10ml SYRINGE ONE (14:42)
[2017-09-17] MEDS ORDERED: IOHEXOL 350mg/ml 75ml INJECTION ONE (14:42)
[2017-09-17 15:36] VITALS: BMI 42.0
[2017-09-17] MEDS ORDERED: VANCOMYCIN - PHARMACY CONSULT MC ONE (15:47)
[2017-09-17] MEDS ORDERED: MORPHINE SULFATE 4mg INJECTION IVP PRN (15:47)
[2017-09-17] MEDS ORDERED: ONDANSETRON 4 MG/2 ML INJECTION IVP PRN (15:47)
[2017-09-17] MEDS ORDERED: VANCOMYCIN 1,250 MG in NS 500ml 500 ML IV ONE (15:47)
[2017-09-17] MEDS ORDERED: FUROSEMIDE 20 MG/2 ML INJECTION IVP ONE (15:51)
[2017-09-17] MEDS ORDERED: ALBUTEROL/IPRATROPIUM 2.5mg-0.5mg/3ml NEB AEROSOL PRN (15:51)
[2017-09-17] MEDS ORDERED: ACETAMINOPHEN 500 MG TABLET PO PRN (15:51)
--- NOTE | 2017-09-17 16:02 | History & Physical Report ---
History of Present Illness Date: 09/17/17 Chief complaint: fever, weakness, vomiting HPI: Shani is a pleasant 67 yo WF who resides in a NH due to chronic disability from severe RA. She reports not feeling well that started fairly suddenly last night. Reports onset of fever, as well as vomiting and cough. She presented to the ED today, where concern for pneumonia was identified. She is being admitted for further evaluation and treatment. 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 Fidencio Malloy for pulmonology. She has RA, Rheumatoid lung disease, and Sjogrens and follows with Dr. Mona Zavala. She has not been on injectables for her autoimmune conditions for the last 6-7 years as they were no longer effective. I d/w pt family. Pt. did have influenza A at the end of July- she was really fairly asymptomatic. She only had a fever, but no cough or other symptoms. Daughter reports that she has been very weak the last week- she normally transfers well, but has difficulty transferring and has not been able to leave the NH. She has also been c/o increasing fatigue as well. Patient was unable to determine if fever and cough began before vomiting or not "it all started at once." Daughter confirmed that she and pt are DPOA; Patient is a full code. Review of Systems All systems PM: 10-point ROS was reviewed, no additional remarkable complaints except - Constitutional Constitutional: Present: fatigue, fever(s), headache(s), lethargy, malaise, weakness - Cardiovascular Cardiovascular: Present: dyspnea on exertion, edema. Absent: chest pain, hx of rheumatic fever Rhythm: Present: regular rhythm Vascular: Present: pedal edema - Respiratory Respiratory: Present: cough, dyspnea, dyspnea on exertion. Absent: pain on inspiration - Gastrointestinal Gastrointestinal: Present: nausea, vomiting. Absent: abdominal pain - Musculoskeletal Musculoskeletal: Present: arthralgias, back pain (Daughter reports pt c/o increasing back pain for last week. ), deformity, limited range of motion, muscle weakness, myalgias - Neurological Neurological: Present: abnormal gait, headache(s) Past Medical History Rheumatoid Arthritis Fibromyalgia syndrome HTN Gout GERD Rheumatoid Lung disease Chronic hypoxemia Sjogrens Surgical History: Right heart cath 2006. MILE. Colonoscopy. Heart cath 1999. Right knee Family History Updates: both brothers have DM2. Rheumatoid arthritis/FMS- daughter. - Social History Smoking status: Never smoker Substance use type: does not use Alcohol intake frequency: does not drink Household members: spouse, family Current occupational status: disabled Current residence: [place] Medications Home Medications Medication Instructions Recorded Confirmed Type Acetaminophen [Acetaminophen Extra 500 mg PO Q6H PRN 09/17/17 09/17/17 History Strength] Albuterol/Ipratropium [Duoneb] 1 unit AEROSOL Q4H PRN 09/17/17 09/17/17 History Alendronate [Fosamax] 70 mg PO Q7D 09/17/17 09/17/17 History Allopurinol [Zyloprim] 300 mg PO NOON 09/17/17 09/17/17 History Aspirin [Aspirin EC] 81 mg PO DAILY 09/17/17 09/17/17 History Benzonatate [Tessalon Perles] 100 mg PO TID PRN 09/17/17 09/17/17 History Calcium Carbonate 600 mg PO BID 09/17/17 09/17/17 History Cholecalciferol (Vitamin D3) 1,000 unit PO DAILY 09/17/17 09/17/17 History [Vitamin D3] Cyclobenzaprine [Flexeril] 10 mg PO TID PRN 09/17/17 09/17/17 History Docusate Sodium [Colace] 100 mg PO NOON 09/17/17 09/17/17 History Escitalopram Oxalate [Lexapro] 10 mg PO DAILY 09/17/17 09/17/17 History Ferrous Sulfate [Iron] 325 mg PO WB 09/17/17 09/17/17 History Folic Acid [Folate] 1 mg PO DAILY 09/17/17 09/17/17 History Furosemide [Lasix 40 mg Tab] 40 mg PO DAILY 09/17/17 09/17/17 History HydrOXYzine [Atarax] 25 mg PO HS 09/17/17 09/17/17 History Hydrocodone/APAP 10/325 [Bandy 2 tab PO HS 09/17/17 09/17/17 History 10/325] Hydrocodone/APAP 10/325 [Bandy 2 tab PO Q4H PRN 09/17/17 09/17/17 History 10/325] Hydroxychloroquine [Plaquenil] 100 mg PO PM 09/17/17 09/17/17 History Hydroxychloroquine [Plaquenil] 200 mg PO QAM 09/17/17 09/17/17 History Loratadine [Claritin] 10 mg PO DAILY 09/17/17 09/17/17 History Magnesium Hydroxide [Milk of 2,400 mg PO DAILY PRN 09/17/17 09/17/17 History Magnesia] Methyl Salicylate/Menthol [Icy Hot 1 applicatio TP BID PRN 09/17/17 09/17/17 History Cream] Metoprolol Succinate [Toprol Xl] 25 mg PO DAILY 09/17/17 09/17/17 History Mirabegron [Myrbetriq] 25 mg PO HS 09/17/17 09/17/17 History Morphine Sulfate 30 mg PO Q3H PRN 09/17/17 09/17/17 History Morphine Sulfate [Morphine Sulfate 60 mg PO BID 09/17/17 09/17/17 History ER] Multivitamin [One Daily] 1 tab PO WS 09/17/17 09/17/17 History Nitrofurantoin. [Macrobid] 100 mg PO DAILY 09/17/17 09/17/17 History Nystatin Cream [Mycostatin] 1 applicatio TP BID PRN 09/17/17 09/17/17 History Anthony-3/Dha/Epa/Fish Oil [Fish Oil 1,000 mg PO HS 09/17/17 09/17/17 History 1,000 mg Softgel] Omeprazole 20 mg PO ACB 09/17/17 09/17/17 History Ondansetron HCl [Zofran] 4 mg PO Q6H PRN 09/17/17 09/17/17 History PE/Shark Liver Oil/Glyc/Wh.pet 1 applicatio RECTALLY QID PRN 09/17/17 09/17/17 History [Hemorrhoidal Cream] Peg 3350 238 G Bottle [Miralax] 8.6 gm PO DAILY 09/17/17 09/17/17 History Peg 3350 238 G Bottle [Miralax] 17 gm PO DAILY PRN 09/17/17 09/17/17 History PredniSONE [Deltasone 2.5 mg] 2.5 mg PO PM 09/17/17 09/17/17 History PredniSONE [Deltasone 5 mg] 5 mg PO QAM 09/17/17 09/17/17 History Allergies Allergy/AdvReac Type Severity Reaction Status Date / Time azithromycin Allergy Mild JITTERS Verified 09/17/17 12:40 clindamycin Allergy Mild JOINT PAIN Verified 09/17/17 12:40 levofloxacin Allergy Mild JOINT PAIN Verified 09/17/17 12:40 minocycline Allergy Unknown Verified 09/17/17 12:40 lidocaine Allergy Verified 09/17/17 13:08 levothyroxine Allergy Unknown Uncoded 09/17/17 12:40 Exam Vital Signs: Temperature 97.6 F 09/17/17 15:32 Pulse Rate 75 09/17/17 15:32 Respiratory Rate 18 09/17/17 15:32 Blood Pressure 104/52 09/17/17 15:32 Pulse Oximetry 93 09/17/17 15:32 Height/Weight/BMI: Height 1.47 m Weight 91.4 kg Body Mass Index 42.0 - Constitutional Present: mild distress, obese, cooperative - Routine HEENT Exam Head: Present: normocephalic, atraumatic, cushingoid faces Eye: Present: EOMI, PERRL ENT: Present: mucous membranes dry - Routine Neck Exam Present: supple. Absent: normal carotid upstroke (Bounding carotid pulse visible), thyromegaly - Routine Respiratory Exam Present: decreased breath sounds, distant breath sounds. Absent: rales, wheezes Comments: Limited due to disability, anterior exam - Routine Cardiovascular Exam Present: RRR, S1, S2, no murmur - Routine Abdominal Exam Present: soft, normoactive bowel sounds, non distended, non tender - Routine Extremities Exam Present: edema (pitting edema to mid calf). Absent: full ROM - Routine Skin Exam Present: intact, dry, warm - Routine Neurological Exam Present: alert, oriented X3 - Routine Psychiatric Exam Present: normal affect, normal thought process, cooperative (chronic contractures, disability from RA) Results - Labs CBC & Chem 7: 09/17/17 13:36 09/17/17 13:36 - Echocardiogram History of Echocardiogram: IMPRESSION. 1. Normal LV systolic function with ejection fraction of 55%. 2. Left ventricular hypertrophy. 3. Mitral annulus calcification with mild mitral regurgitation. 4. Aortic sclerosis. 5. Trace of tricuspid regurgitation with normal estimated pulmonary artery systolic pressure of 15. 6. Trace of pulmonary insufficiency. - Imaging and Cardiology Chest x-ray Status: image reviewed by me, pending Additional comments: Significant posterior infiltrate. CT scan - chest Status: image reviewed by me Additional comments: Bibasilar and RML infiltrates. 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 CTA obtained, which confirmed the infiltrate. Start Cefepime, Vanco. Avoid Levaquin due to allergy. nebs, O2 and monitoring; order Tele. Start sepsis protocol for aggressive monitoring and IV antibiotic therapy. She appears fluid overloaded-Will provide single dose of IV Lasix and replace potassium. May need to restart home Lasix if BP remains stable. Prior echo OK. Will hold off on additional IVF for now, but may need to add supportive IVF given risk of infection. Continue home medications as appropriate for chronic pain. Will hold short acting oral morphine as she required IV morphine in the ER- will allow IV morphine for PRN breakthrough pain. Continue PPI for GERD. Lovenox for DVT px. Full code was confirmed by daughter. DVT Prophylaxis: Lovenox GI Prophylaxis: Protonix (PPI) Resuscitation Status: Full Code - Physician Narrative Physician: Stella Minor MD Narrative: Date: 09/17/17 Time: 1899 I have independently evaluated and examined this patient. I reviewed the chart, the patient's history, and the HAND ROUTER OPERATOR/PA's documented findings as above. We discussed and formulated the assessment and plan as above with additions as below: Shani was seen with her daughter at bedside. She describes 1 week history minor cough and dyspnea which worsened significantly over the past 24 hours when she developed GI symptoms as described above in conjunction with temperature of 101 this morning at [facility], worsening hypoxia ( chronically on nocturnal oxygen but generally does not require oxygen during the day), headache, and mild vertigo/lightheadedness earlier today which has subsequently resolved. She denies pleuritic pain or hemoptysis. She denied rigors. Oxygen saturation on arrival in the emergency room was 88%, unclear if on oxygen at the time or not. Chest x-ray demonstrated infiltrates which were confirmed and more extensive on CT then standard chest x-ray suggested. No evidence of PE. NAD, fluent speech, cooperative Respirations nonlabored, fair airflow, inspiratory/expiratory crackles 1/2 up posteriorly right lung field posteriorly, 1/3 up left field posteriorly; no wheezing appreciated. 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 Mild leukocytosis present, potassium 3.4, minor elevation in transaminases. Antibiotics as above-previously discussed with Amy. Potassium being supplemented. Chronic steroid use-continue prednisone but increase dose to 20 mg daily with titration over the next 2-3 days to usual dose of 7.5 mg daily provided respiratory status permits. Discussed with Dr. Abraham. Hospital Course Summary Disclaimer: The visit summary below is not to be considered part of the above Progress Note. Hospital Course: Impression: <PCP: Elliott> HCAP Acute on chronic respiratory failure Chronic lung disease Rheumatoid arthritis with rheumatoid lung disease Sjgren's Chronic pain/Fibromyalgia Fluid overload Chronic peripheral edema Gout GERD HTN Plan: 09/17/17 Admit Inpatient. CTA obtained, which confirmed the infiltrate. Start Cefepime, Vanco. Avoid Levaquin due to allergy. nebs, O2 and monitoring; order Tele. Start sepsis protocol for aggressive monitoring and IV antibiotic therapy. She appears fluid overloaded-Will provide single dose of IV Lasix and replace potassium. May need to restart home Lasix if BP remains stable. Prior echo OK. Will hold off on additional IVF for now, but may need to add supportive IVF given risk of infection. Continue home medications as appropriate for chronic pain. Will hold short acting oral morphine as she required IV morphine in the ER- will allow IV morphine for PRN breakthrough pain. Continue PPI for GERD. Lovenox for DVT px. Full code was confirmed by daughter.
[2017-09-17] MEDS: HYDROCODONE/APAP 10 MG/325 MG TABLET PO PRN (16:54)
[2017-09-17] MEDS: ALBUTEROL/IPRATROPIUM 2.5mg-0.5mg/3ml NEB AEROSOL SCH (19:11)
[2017-09-17] MEDS: CEFEPIME 1 GM in NS 100 ML IV SCH (21:16)
[2017-09-17] MEDS: HYDROCODONE/APAP 10 MG/325 MG TABLET PO SCH (21:17)
[2017-09-17] MEDS: MIRABEGRON 25mg TABLET PO SCH (21:18)
[2017-09-17] MEDS: CALCIUM CARBONATE 600 MG TABLET PO SCH (21:18)
[2017-09-17] MEDS: PredniSONE 10 MG TABLET PO SCH (21:18)
[2017-09-18] MEDS: CEFEPIME 1 GM in NS 100 ML IV SCH (03:00)
[2017-09-18] MEDS: HYDROCODONE/APAP 10 MG/325 MG TABLET PO PRN ×2 (06:26→14:19)
[2017-09-18] MEDS: LORATADINE 10 MG TABLET PO SCH (06:27)
[2017-09-18] MEDS: OMEPRAZOLE 20 MG CAPSULE PO SCH (07:28)
[2017-09-18] MEDS ORDERED: METHYL SALICYLATE/MENTHOL OINT 28gm TP PRN (07:30)
--- NOTE | 2017-09-18 07:43 | XRay Report ---
INDICATION: shortness of air chest pain not feeling well PROCEDURE: CHEST 2-VIEWS UPRIGHT (PA & LAT) Encounter: Initial COMPARISON: Chest CT dated September 17, 2017 FINDINGS: Lower lobe airspace consolidation is noted on the lateral view as seen on the chest CT upper lung browne are clear. There is no pleural effusion or pneumothorax. The heart size, mediastinal contours and pulmonary vascularity are within normal limits. IMPRESSION: Lower lobe pneumonia or aspiration. .
--- NOTE | 2017-09-18 07:43 | CT Scan Report ---
Indication: elevated d-dimer shortness of air rule out pulmonary embolus PROCEDURE: CT angio pulm emboli: Encounter: Initial Comparison: Chest x-ray from the same date Technique: Axial CT pulmonary angiographic phase images were performed through the chest after the administration of intravenous contrast. Coronal and Sagittal MIP reconstructed images were created and reviewed. Automated Exposure Control and Iterative Reconstruction dose reducing techniques were utilized. Contrast: Omnipaque 350 74 mL Findings: Pulmonary arteries: Exam is diagnostic to the subsegmental pulmonary arterial level. No filling defects identified to suggest a pulmonary embolus. Other findings: Airspace consolidation in both lower lobes, left greater than right. Small amounts of airspace disease in the right middle lobe as well. No pneumothorax or pulmonary mass. No axillary or mediastinal adenopathy. Heart size is normal. No pericardial effusion. The upper abdomen shows no acute findings. Impression: No pulmonary embolus. Lower lobe pneumonia or aspiration. There is a preliminary report by virtual radiologic. .
[2017-09-18] MEDS: CEFEPIME 1 GM in NS 50 ML IV SCH ×3 (08:22→19:50)
[2017-09-18] MEDS: CYCLOBENZAPRINE 10 MG TABLET PO PRN (09:20)
[2017-09-18] MEDS: FUROSEMIDE 40 MG TABLET PO SCH (09:20)
[2017-09-18] MEDS: PredniSONE 10 MG TABLET PO SCH (09:20)
[2017-09-18] MEDS: CALCIUM CARBONATE 600 MG TABLET PO SCH ×2 (09:20→21:05)
[2017-09-18] MEDS: FOLIC ACID 1 MG TABLET PO SCH (09:21)
[2017-09-18] MEDS: FERROUS SULFATE 324 MG TABLET PO SCH (09:21)
[2017-09-18] MEDS: ASPIRIN *EC* 81 MG TABLET PO SCH (09:21)
[2017-09-18] MEDS: ESCITALOPRAM 10 MG TABLET PO SCH (09:21)
[2017-09-18] MEDS: ENOXAPARIN 40 MG/0.4 ML INJECTION SQ SCH (09:21)
[2017-09-18] MEDS: POLYETHYL GLYCOL 3350 17gm PACKET PO SCH (09:21)
[2017-09-18] MEDS: BENZONATATE 100 MG CAPSULE PO PRN (09:33)
[2017-09-18] MEDS: ALBUTEROL/IPRATROPIUM 2.5mg-0.5mg/3ml NEB AEROSOL SCH ×4 (09:37→20:10)
--- NOTE | 2017-09-18 11:54 | Pharmacy Consult-Antibiotics ---
Pharmacy Consult-Vancomycin - Laboratory Information WBC 20.5 T/MM3 (4.5-11.0) H D 09/18/17 04:44 BUN 19.0 MG/DL (7-17) H 09/18/17 04:44 Creatinine 0.8 mg/dL (0.7-1.2) 09/18/17 04:44 Procalcitonin 7.01 NG/ML H* 09/18/17 04:44 - Consult Information VANCOMYCIN CONSULT: 67 yr old female patient 4'10" 91.1 kg who resides in a [place] Dx: Sepsis Current Renal Fx: SCr = 0.8 mg/dl. Will give Vancomycin 1750 mg IV q24hrs. Will continue to monitor and adjust regimen to maintain therapeutic levels. Thank you. Ana Laura Heller, PharmD
[2017-09-18] MEDS: ALLOPURINOL 300 MG TABLET PO SCH (12:01)
[2017-09-18] MEDS: DOCUSATE SODIUM 100 MG CAPSULE PO SCH (12:01)
[2017-09-18] MEDS ORDERED: FALL RISK - PHARMACY CONSULT XX ONE (15:38)
[2017-09-18] MEDS: SALINE FLUSH 10ml SYRINGE IV PRN (19:51)
[2017-09-18] MEDS: NS FLUSH BAG 500ml IV PRN (19:53)
--- NOTE | 2017-09-18 20:08 | Progress Note ---
- Date 09/18/17 Subjective: Mrs. Wang reports that she is breathing somewhat more comfortably today; cough is improving and there is been minimal sputum production. Breathing treatments are helping. She denies recurrent sensation of fevers and has not chilled. She denied chest pain, palpitations, nausea, or diarrhea. She is voiding spontaneously and without dysuria. She complains of generalized myalgias and arthritis pain. Objective Vital signs: Temperature 98.8 F 09/18/17 17:00 Pulse Rate 64 09/18/17 17:00 Respiratory Rate 16 09/18/17 17:00 Blood Pressure 128/67 09/18/17 17:00 Pulse Oximetry 94 09/18/17 17:00 NAD, alert Conjunctiva clear, sclera anicteric, conjugate gaze Respirations nonlabored, good airflow, breath sounds clear on the right but diminished on the left laterally and at the left posterior base Regular rhythm, S1-S2 Abdomen soft, nontender, bowel sounds present L>R lower extremity edema, pitting Moving extremities well Height/Weight/BMI: Height 1.47 m Weight 91.9 kg Body Mass Index 42.0 Results - Labs CBC & Chem 7: 09/18/17 04:44 09/18/17 04:44 Labs: S72 B23 L2 M3 AST 42, ALT 41, procalcitonin 7.01, second lactic acid 1.7 respiratory viral panel negative Assessment and Plan (1) HCAP (healthcare-associated pneumonia) Current visit: Yes Status: Acute Assessment and Plan: Impression: HCAP Severe sepsis-lactic acid 2.2, leukocytosis, tachypnea, tachycardia, reported fever Acute on chronic hypoxic respiratory failure [id number] 09/17/17 Chronic lung disease Rheumatoid arthritis with rheumatoid lung disease Sjgren's Chronic pain/Fibromyalgia Fluid overload Chronic peripheral edema Gout GERD HTN Plan: No recurrent fever overnight, clinically improving although white count is higher and left shift now present. Continue cefepime/vancomycin in conjunction with breathing treatments. Oxygenating adequately with 2 L supplemental O2. Chest x-ray in a.m. to assess volume status. Potassium adequately supplemented-borderline high this morning. Home pain medication regimen resumed late yesterday, continue. Prednisone increased to 20 mg daily yesterday due to chronic use; anticipate beginning to taper after tomorrow's dose. Minor elevation in transaminases, monitor periodically-suspect chronic. - Physician Narrative Narrative: Date: 09/18/17 Time: 2003 Sepsis Assessment - Evaluation SIRS Criteria: pulse > 90 beats/minute, WBC > 12,000, RR > 20 Severe Sepsis: lactate > 2.0 mg/dL Hospital Course Summary Disclaimer: The visit summary below is not to be considered part of the above Progress Note. Hospital Course: Impression: <PCP: Elliott> HCAP Severe sepsis Acute on chronic respiratory failure Chronic lung disease Rheumatoid arthritis with rheumatoid lung disease Sjgren's Chronic pain/Fibromyalgia Fluid overload Chronic peripheral edema Gout GERD HTN Plan: 09/17/17 Admit Inpatient. CTA obtained, which confirmed the infiltrate. Start Cefepime, Vanco. Avoid Levaquin due to allergy. nebs, O2 and monitoring; order Tele. Start sepsis protocol for aggressive monitoring and IV antibiotic therapy. Prednisone increased from 7.5 mg to 20 mg daily. She appears fluid overloaded-Will provide single dose of IV Lasix and replace potassium. May need to restart home Lasix if BP remains stable. Prior echo OK. Will hold off on additional IVF for now, but may need to add supportive IVF given risk of infection. Continue home medications as appropriate for chronic pain. Continue PPI for GERD. Lovenox for DVT px. Full code was confirmed by daughter. 09/18/17 No recurrent fever overnight, clinically improving although white count is higher and left shift now present. Continue cefepime/vancomycin in conjunction with breathing treatments. Oxygenating adequately with 2 L supplemental O2. Chest x-ray in a.m. to assess volume status. Potassium adequately supplemented-borderline high this morning. Home pain medication regimen resumed late yesterday, continue. Minor elevation in transaminases, monitor periodically-suspect chronic.
[2017-09-18] MEDS: MIRABEGRON 25mg TABLET PO SCH (21:04)
[2017-09-18] MEDS: HYDROCODONE/APAP 10 MG/325 MG TABLET PO SCH (21:05)
[2017-09-19] MEDS: CEFEPIME 1 GM in NS 50 ML IV SCH ×4 (01:19→21:30)
[2017-09-19] MEDS: OMEPRAZOLE 20 MG CAPSULE PO SCH (05:43)
[2017-09-19] MEDS: LORATADINE 10 MG TABLET PO SCH ×2 (05:44→06:02)
[2017-09-19] MEDS: HYDROCODONE/APAP 10 MG/325 MG TABLET PO PRN ×2 (08:08→13:32)
[2017-09-19] MEDS: FUROSEMIDE 40 MG TABLET PO SCH (08:09)
[2017-09-19] MEDS: FERROUS SULFATE 324 MG TABLET PO SCH (08:10)
[2017-09-19] MEDS: ESCITALOPRAM 10 MG TABLET PO SCH (08:10)
[2017-09-19] MEDS: ASPIRIN *EC* 81 MG TABLET PO SCH (08:10)
[2017-09-19] MEDS: CALCIUM CARBONATE 600 MG TABLET PO SCH ×2 (08:11→21:31)
[2017-09-19] MEDS: FOLIC ACID 1 MG TABLET PO SCH (08:11)
[2017-09-19] MEDS: PredniSONE 10 MG TABLET PO SCH (08:11)
--- NOTE | 2017-09-19 08:14 | XRay Report ---
Indication: pneumonia/hypoxia PROCEDURE: XR chest 1V: Encounter: Initial Comparison: September 17, 2017 Findings: Lower lobe airspace disease is not visibly changed on this view although it was better seen on the prior lateral chest x-ray. No obvious new or worsening infiltrates. No pneumothorax or gross effusion. Heart size and mediastinal contours are stable. Impression: Stable appearance of the chest. .
[2017-09-19] MEDS: POLYETHYL GLYCOL 3350 17gm PACKET PO SCH (08:44)
[2017-09-19] MEDS: ALBUTEROL/IPRATROPIUM 2.5mg-0.5mg/3ml NEB AEROSOL SCH ×4 (09:40→20:03)
[2017-09-19] MEDS: ENOXAPARIN 40 MG/0.4 ML INJECTION SQ SCH (10:09)
[2017-09-19] MEDS: DOCUSATE SODIUM 100 MG CAPSULE PO SCH (13:32)
[2017-09-19] MEDS: ALLOPURINOL 300 MG TABLET PO SCH (13:32)
--- NOTE | 2017-09-19 15:23 | Progress Note ---
- Date 09/19/17 Subjective: Patient seen resting in bed this afternoon. She reports she is feeling "a tiny bit" better. Swelling in her legs is better. Only pain is her fibromyalgia pain. Appetite is average. Feels that bowels are getting ready to move. Objective Vital signs: Temperature 96 F L 09/19/17 07:00 Pulse Rate 61 09/19/17 08:00 Respiratory Rate 22 09/19/17 13:15 Blood Pressure 126/69 09/19/17 07:00 Pulse Oximetry 97 09/19/17 13:15 Height/Weight/BMI: Height 1.47 m Weight 92.2 kg Body Mass Index 42.0 - Constitutional Present: no acute distress, well nourished, well developed - Routine HEENT Exam Head: Present: normocephalic, atraumatic - Routine Respiratory Exam Present: wheezes (diffuse "squeaks" and crackles) - Routine Cardiovascular Exam Present: RRR, no murmur - Routine Abdominal Exam Present: soft, non distended, non tender - Routine Extremities Exam Present: edema, normal capillary refill Comments: L>R. Pitting. (Pt reports L is chronically more swollen) - Routine Skin Exam Present: dry, warm - Routine Neurological Exam Present: alert, oriented X3 - Routine Lymphatic Exam Lymphatic: Absent: adenopathy - Routine Psychiatric Exam Present: normal affect, cooperative Results - Labs CBC & Chem 7: 09/19/17 05:11 09/19/17 05:11 Assessment and Plan (1) HCAP (healthcare-associated pneumonia) Current visit: Yes Status: Acute Assessment and Plan: Impression: HCAP Severe sepsis-lactic acid 2.2, leukocytosis, tachypnea, tachycardia, reported fever Acute on chronic hypoxic respiratory failure Hypokalemia-POA Chronic lung disease Rheumatoid arthritis with rheumatoid lung disease Sjgren's Chronic pain/Fibromyalgia Fluid overload Chronic peripheral edema Gout GERD HTN Plan: Leukocytosis improving 20.5-->13.2. CXR this am is stable. (No new or worsening infiltrates.) Continue cefepime/vancomycin (Day #3) in conjunction with breathing treatments. Oxygenating adequately with 2 L supplemental O2. Prednisone increased to 20 mg daily on admission due to chronic use; anticipate beginning to taper tomorrow if pt's condition permits Minor elevation in transaminases, monitor periodically-suspect chronic. Add PT/OT DVT Prophylaxis: Lovenox Resuscitation Status: Full Code - Physician Narrative Physician: Stella Minor MD Narrative: Date: 09/19/17 Time: 2029 I have independently evaluated and examined this patient. I reviewed the chart, the patient's history, and the ELEMENTARY ASSISTANT TEACHER/PA's documented findings as above. We discussed and formulated the assessment and plan as above with additions as below: Shani reports that her breathing is slightly better although she feels like she is working harder to breathe and is normal. She notes occasional wheezing. Generalized pain has improved from admission. NAD, alert; respirations nonlabored Respirations are coarse but partially clear with cough, persistent coarse sounds posteriorly L>R Chest x-ray reviewed by myself-mild bibasilar infiltrates-no overt heart failure Blood cultures negative after 2 days; sputum culture has not been obtained. Check MRSA nasal swab. Hospital Course Summary Disclaimer: The visit summary below is not to be considered part of the above Progress Note. 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 CTA obtained, which confirmed the infiltrate. Start Cefepime, Vanco. Avoid Levaquin due to allergy. nebs, O2 and monitoring; order Tele. Start sepsis protocol for aggressive monitoring and IV antibiotic therapy. Prednisone increased from 7.5 mg to 20 mg daily. She appears fluid overloaded-Will provide single dose of IV Lasix and replace potassium. May need to restart home Lasix if BP remains stable. Prior echo OK. Will hold off on additional IVF for now, but may need to add supportive IVF given risk of infection. Continue home medications as appropriate for chronic pain. Continue PPI for GERD. Lovenox for DVT px. Full code was confirmed by daughter. 09/18/17 No recurrent fever overnight, clinically improving although white count is higher and left shift now present. Continue cefepime/vancomycin in conjunction with breathing treatments. Oxygenating adequately with 2 L supplemental O2. Chest x-ray in a.m. to assess volume status. Potassium adequately supplemented-borderline high this morning. Home pain medication regimen resumed late yesterday, continue. Minor elevation in transaminases, monitor periodically-suspect chronic. 09/19/17 Leukocytosis improving 20.5-->13.2. CXR this am is stable. (No new or worsening infiltrates.) Continue cefepime/vancomycin (Day #3) in conjunction with breathing treatments. Anticipate beginning to taper prednison tomorrow if pt's condition permits Add PT/OT
[2017-09-19] MEDS: NS FLUSH BAG 500ml IV PRN (21:30)
[2017-09-19] MEDS: MIRABEGRON 25mg TABLET PO SCH (21:31)
[2017-09-19] MEDS: HYDROCODONE/APAP 10 MG/325 MG TABLET PO SCH (21:31)
[2017-09-20] MEDS: CEFEPIME 1 GM in NS 50 ML IV SCH ×4 (02:22→20:55)
[2017-09-20] MEDS: OMEPRAZOLE 20 MG CAPSULE PO SCH (06:02)
[2017-09-20] MEDS: LORATADINE 10 MG TABLET PO SCH (06:02)
[2017-09-20] MEDS: ALBUTEROL/IPRATROPIUM 2.5mg-0.5mg/3ml NEB AEROSOL SCH ×4 (07:29→20:03)
[2017-09-20] MEDS: ASPIRIN *EC* 81 MG TABLET PO SCH (08:26)
[2017-09-20] MEDS: FUROSEMIDE 40 MG TABLET PO SCH (08:26)
[2017-09-20] MEDS: FERROUS SULFATE 324 MG TABLET PO SCH (08:26)
[2017-09-20] MEDS: ESCITALOPRAM 10 MG TABLET PO SCH (08:26)
[2017-09-20] MEDS: FOLIC ACID 1 MG TABLET PO SCH (08:26)
[2017-09-20] MEDS: CALCIUM CARBONATE 600 MG TABLET PO SCH ×2 (08:26→20:59)
[2017-09-20] MEDS: ENOXAPARIN 40 MG/0.4 ML INJECTION SQ SCH (08:27)
[2017-09-20] MEDS: POLYETHYL GLYCOL 3350 17gm PACKET PO SCH (08:27)
[2017-09-20] MEDS: PredniSONE 10 MG TABLET PO SCH (08:27)
[2017-09-20] MEDS: CYCLOBENZAPRINE 10 MG TABLET PO PRN (08:28)
--- NOTE | 2017-09-20 11:22 | Progress Note ---
- Date 09/20/17 Subjective: Patient is seen this morning sitting up in her chair. She feels she is doing better, but breathing is not back to baseline. Still notes wheezing at times. Can't cough anything up. Bowels are moving. No CP, nausea or vomiting. Objective Vital signs: Temperature 96.4 F L 09/20/17 07:00 Pulse Rate 63 09/20/17 07:00 Respiratory Rate 20 09/20/17 07:29 Blood Pressure 170/80 H 09/20/17 07:00 Pulse Oximetry 98 09/20/17 07:29 Height/Weight/BMI: Height 1.47 m Weight 91.5 kg Body Mass Index 42.0 - Constitutional Present: no acute distress, well nourished, well developed - Routine HEENT Exam Head: Present: normocephalic, atraumatic - Routine Respiratory Exam Absent: respiratory distress Comments: sounds improved from yesterday. Still coarse with diffuse "squeaks"/crackles - Routine Cardiovascular Exam Present: RRR, no murmur - Routine Abdominal Exam Present: soft, non distended, non tender - Routine Extremities Exam Present: edema (improving. Trace R 1+ L.), normal capillary refill - Routine Skin Exam Present: dry, warm - Routine Neurological Exam Present: alert, oriented X3 - Routine Lymphatic Exam Lymphatic: Absent: adenopathy - Routine Psychiatric Exam Present: normal affect, cooperative Results - Labs CBC & Chem 7: 09/20/17 04:08 09/20/17 04:08 Microbiology Results: +MRSA nasal swab Assessment and Plan (1) HCAP (healthcare-associated pneumonia) Current visit: Yes Status: Acute Assessment and Plan: Impression: HCAP Severe sepsis-lactic acid 2.2, leukocytosis, tachypnea, tachycardia, reported fever Acute on chronic hypoxic respiratory failure Hypokalemia-POA (resolved 09/19/17) Chronic lung disease 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 Continue cefepime/vancomycin (Day #4) in conjunction with breathing treatments. Add acapella. MRSA nasal swab positive - add Bactroban nasal. Currently off O2 maintaining 90-92% at rest. Prednisone increased to 20 mg daily on admission due to chronic use; decrease to 15mg today. DVT Prophylaxis: Lovenox Resuscitation Status: Full Code - Physician Narrative Physician: Stella Minor MD Narrative: Date: 09/20/17 Time: 1420 I have independently evaluated and examined this patient. I reviewed the chart, the patient's history, and the AU PAIR/PA's documented findings as above. We discussed and formulated the assessment and plan as above with additions as below: Shani complains of dry eyes and reports that eyedrops were not on her medication list on admission; nursing has subsequently added them to med rec and patient advised to be resumed. She reports that she continues to have nonproductive cough but feels like congestion has all moved to the center of her chest rather than being lower in her lung browne. She coughs frequently. She needs to clear her throat. Myalgias/arthralgias at baseline. NAD, appears moderately fatigued, coughs frequently, Respirations nonlabored, good airflow, intermittent squeak with inspiration but significantly improved from yesterday; no wheezing Nasal swab positive for MRSA PT/OT evaluations completed-detention recommended at discharge. Continue antibiotics at present-if no sputum available tomorrow will de- escalate empirically PA/lateral chest x-ray tomorrow. Hospital Course Summary Disclaimer: The visit summary below is not to be considered part of the above Progress Note. 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 CTA obtained, which confirmed the infiltrate. Start Cefepime, Vanco. Avoid Levaquin due to allergy. nebs, O2 and monitoring; order Tele. Start sepsis protocol for aggressive monitoring and IV antibiotic therapy. Prednisone increased from 7.5 mg to 20 mg daily. She appears fluid overloaded-Will provide single dose of IV Lasix and replace potassium. May need to restart home Lasix if BP remains stable. Prior echo OK. Will hold off on additional IVF for now, but may need to add supportive IVF given risk of infection. Continue home medications as appropriate for chronic pain. Continue PPI for GERD. Lovenox for DVT px. Full code was confirmed by daughter. 09/18/17 No recurrent fever overnight, clinically improving although white count is higher and left shift now present. Continue cefepime/vancomycin in conjunction with breathing treatments. Oxygenating adequately with 2 L supplemental O2. Chest x-ray in a.m. to assess volume status. Potassium adequately supplemented-borderline high this morning. Home pain medication regimen resumed late yesterday, continue. Minor elevation in transaminases, monitor periodically-suspect chronic. 09/19/ Leukocytosis improving 20.5-->13.2. CXR this am is stable. (No new or worsening infiltrates.) Continue cefepime/vancomycin (Day #3) in conjunction with breathing treatments. Anticipate beginning to taper prednisone tomorrow if pt's condition permits Add PT/OT 09/20/17 Leukocytosis resolved with WBC of 9.1 this am. Continue cefepime/vancomycin (Day #4) in conjunction with breathing treatments. Add acapella. MRSA nasal swab positive - add Bactroban nasal. Currently off O2 maintaining 90-92% at rest. Prednisone increased to 20 mg daily on admission due to chronic use; decrease to 15mg today.
[2017-09-20] MEDS: DOCUSATE SODIUM 100 MG CAPSULE PO SCH (13:13)
[2017-09-20] MEDS: ALLOPURINOL 300 MG TABLET PO SCH (13:13)
[2017-09-20] MEDS: MUPIROCIN 2% OINTMENT 22gm EA NOSTRIL SCH ×2 (13:13→21:04)
[2017-09-20] MEDS: REFRESH CELLUVISC 1% Eye Drops 0.4ml EACH EYE PRN (14:11)
[2017-09-20] MEDS: MULTI-VITAMIN PLAIN TABLET PO SCH (19:14)
[2017-09-20] MEDS: MIRABEGRON 25mg TABLET PO SCH (20:59)
[2017-09-20] MEDS: CycloSPORINE 0.05% EYE DROPS 4ml EACH EYE SCH (20:59)
[2017-09-20] MEDS: HYDROCODONE/APAP 10 MG/325 MG TABLET PO SCH (21:11)
[2017-09-21] MEDS: CEFEPIME 1 GM in NS 50 ML IV SCH ×4 (02:12→21:19)
[2017-09-21] MEDS: OMEPRAZOLE 20 MG CAPSULE PO SCH (05:40)
[2017-09-21] MEDS: LORATADINE 10 MG TABLET PO SCH (06:39)
[2017-09-21] MEDS: ALBUTEROL/IPRATROPIUM 2.5mg-0.5mg/3ml NEB AEROSOL SCH ×4 (07:52→18:19)
[2017-09-21] MEDS: POLYETHYL GLYCOL 3350 17gm PACKET PO SCH (08:31)
[2017-09-21] MEDS: ENOXAPARIN 40 MG/0.4 ML INJECTION SQ SCH (08:31)
[2017-09-21] MEDS: FOLIC ACID 1 MG TABLET PO SCH (08:31)
[2017-09-21] MEDS: PredniSONE 10 MG TABLET PO SCH (08:32)
[2017-09-21] MEDS: ASPIRIN *EC* 81 MG TABLET PO SCH (08:32)
[2017-09-21] MEDS: FERROUS SULFATE 324 MG TABLET PO SCH (08:32)
[2017-09-21] MEDS: CALCIUM CARBONATE 600 MG TABLET PO SCH ×2 (08:33→21:19)
[2017-09-21] MEDS: REFRESH CELLUVISC 1% Eye Drops 0.4ml EACH EYE PRN (08:33)
[2017-09-21] MEDS: FUROSEMIDE 40 MG TABLET PO SCH (08:33)
[2017-09-21] MEDS: CycloSPORINE 0.05% EYE DROPS 4ml EACH EYE SCH ×2 (08:33→21:40)
[2017-09-21] MEDS: ESCITALOPRAM 10 MG TABLET PO SCH (08:33)
[2017-09-21] MEDS: BENZONATATE 100 MG CAPSULE PO PRN (08:34)
[2017-09-21] MEDS: MUPIROCIN 2% OINTMENT 22gm EA NOSTRIL SCH ×2 (08:35→21:40)
--- NOTE | 2017-09-21 09:00 | XRay Report ---
INDICATION: pneumonia PROCEDURE: CHEST 2-VIEWS UPRIGHT (PA & LAT) Encounter: Initial COMPARISON: September 19, 2017 FINDINGS: Continued lower lobe airspace consolidation noted on the lateral view. This may be slightly improved. No new or worsening airspace disease. No pneumothorax or effusion. Heart size and mediastinal contours are stable. Pulmonary vascularity is stable. Impression: Slightly improved basilar pneumonia. .
--- NOTE | 2017-09-21 11:18 | Extended Care Facility Orders ---
<Nurys Banuelos - Last Filed: 09/21/17 11:14> Admission Orders Admit to:: Long-Term Allergies/Adverse Reactions: Allergies nystatin Allergy (Severe, Verified 09/20/17 16:58) Rash azithromycin Allergy (Mild, Verified 09/17/17 12:40) JITTERS clindamycin Allergy (Mild, Verified 09/17/17 12:40) JOINT PAIN levofloxacin Allergy (Mild, Verified 09/17/17 12:40) JOINT PAIN minocycline Allergy (Unknown, Verified 09/17/17 12:40) lidocaine Allergy (Verified 09/17/17 13:08) levothyroxine Allergy (Unknown, Uncoded 09/17/17 12:40) Admitting Diagnosis: sepsis Admitting Physician: Stella Minor MD Attending Physician: Stella Minor MD Code Status: Full Code Anticiapted Length of Stay: 30 days or less Rehab Potential: fair Rehab Prognosis: fair Diet: 09/17/17 Dinner Regular Diet [DIET] Diet Modifications: Sodium Restriction: 3GRAM May use Facility Protocol or Standing Orders: Yes May have flu vaccine: Yes Evaluations/Treatment: PT, OT, RT Long-Term Certification: I certify that SNF services are required to be given on an Inpatient basis because of the patients need for [place] [facility] care on a continuing basis for the condition(s) for which he/she received inpatient hospital services prior to his/her transfer to the SNF. SNF inpatient care is necessary for the following reasons Indication for Long-Term: Other (PT/OT) - Additional Information In Event of Arrest: Start CPR,call 911,send patient to the ER Resident is Aware of Diagnosis: Yes Referrals: Naomi Gallagher MD [Family Provider] - 1 Week Additional Orders: Mupirocin to be continued through 09/26/17. Cefipime and Bactrim to be continued through September 30 or as directed by PCP. Prednisone can be decreased to 10mg in 5 days or per PCP's instruction. Her chronic dose prior to admission was 5mg am and 2.5mg pm. <Stella Minor - Last Filed: 09/21/17 13:15> Admission Orders Admitting Diagnosis: sepsis Admitting Physician: Stella Minor MD Attending Physician: Stella Minor MD Code Status: Full Code Diet: 09/17/17 Dinner Regular Diet [DIET] Diet Modifications: Sodium Restriction: 3GRAM Long-Term Certification: I certify that SNF services are required to be given on an Inpatient basis because of the patients need for [place] [facility] care on a continuing basis for the condition(s) for which he/she received inpatient hospital services prior to his/her transfer to the SNF. SNF inpatient care is necessary for the following reasons - Additional Information Additional Orders: resume Prednisone 7.5 mg on 09/30
--- NOTE | 2017-09-21 11:21 | Pharmacy Consult-Antibiotics ---
Pharmacy Consult-Vancomycin - Laboratory Information WBC 9.1 T/MM3 (4.5-11.0) 09/20/17 04:08 BUN 20.0 MG/DL (7-17) H 09/20/17 04:08 Creatinine 0.7 mg/dL (0.7-1.2) 09/21/17 05:13 Procalcitonin 0.60 NG/ML 09/21/17 05:13 Vancomycin Trough 17.28 ug/mL (15-20) 09/21/17 05:13 - Consult Information VANCOMYCIN CONSULT: 67 yr old female patient 4'10" 91.1 kg Dx: Sepsis Vancomycin dose is 1750 mg IV q24hrs. Patient's WBC's have decreased to 9.1 () Vancomycin Trough = 17.38 mcg/ml. Trough is in therapeutic range of 15-20 Today's SCr = 0.7 mg/dl. (which has decreased from 0.8 on 09/20/17) Will continue with Vancomycin 1750 mg IV q24hrs. Will continue to monitor and make adjustments accordingly. Thank you. Ana Laura Heller, PharmD
[2017-09-21] MEDS: ALLOPURINOL 300 MG TABLET PO SCH (13:58)
[2017-09-21] MEDS: DOCUSATE SODIUM 100 MG CAPSULE PO SCH (13:58)
[2017-09-21] MEDS: SALINE FLUSH 10ml SYRINGE IV PRN ×3 (14:21→22:47)
--- NOTE | 2017-09-21 15:29 | Progress Note ---
- Date 09/21/17 Subjective: Patient is seen sitting in her chair this morning. She reports she is feeling like it takes more effort to breathe and cough. She is eating okay. She has been off oxygen last evening some and this morning. Acquired her normal oxygen overnight. She worked with therapy yesterday. Her bowels moving. No increase in swelling. Objective Vital signs: Temperature 96.9 F 09/21/17 08:00 Pulse Rate 71 09/21/17 08:00 Respiratory Rate 18 09/21/17 13:45 Blood Pressure 172/73 H 09/21/17 08:00 Pulse Oximetry 93 09/21/17 13:45 Height/Weight/BMI: Height 1.47 m Weight 91.5 kg Body Mass Index 42.0 - Constitutional Present: no acute distress, well nourished, well developed - Routine HEENT Exam Head: Present: normocephalic, atraumatic - Routine Respiratory Exam Present: diminished air movement. Absent: wheezes Comments: She is moving more air today but continues to have inspiratory "squeaks" throughout. - Routine Cardiovascular Exam Present: RRR, no murmur - Routine Abdominal Exam Present: soft, non distended, non tender - Routine Extremities Exam Present: edema (trace right, 1+ left (chronic)), normal capillary refill - Routine Skin Exam Present: dry, warm - Routine Neurological Exam Present: alert, oriented X3 - Routine Lymphatic Exam Lymphatic: Absent: adenopathy - Routine Psychiatric Exam Present: normal affect, cooperative Results - Labs CBC & Chem 7: 09/20/17 04:08 09/21/17 05:13 Assessment and Plan (1) HCAP (healthcare-associated pneumonia) Current visit: Yes Status: Acute Assessment and Plan: Impression: HCAP Severe sepsis-lactic acid 2.2, leukocytosis, tachypnea, tachycardia, reported fever Acute on chronic hypoxic respiratory failure Hypokalemia-POA (resolved 09/19/17) Chronic lung disease 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 She reports the acapella has really been helping. Currently off O2 maintaining 89-90% at rest. Patient will discharge tomorrow to senior living at [facility]. Get PICC line placed. Plan to start Bactrim DS, one pill twice a day in place of vancomycin on discharge and continue cefepime IV. We'll continue both of these medications for another 10 days. She'll need to complete her five-day course of mupirocin as well. (Continue through 09/26/17.) Decrease prednisone to 10mg on 09/26. On 09/30, resume chronic prednisone dose of 5 mg a.m., 2.5 mg p.m. Extended care plan orders have been completed. - Physician Narrative Physician: Stella Minor MD Narrative: Date: 09/21/17 Time: 170 I have independently evaluated and examined this patient. I reviewed the chart, the patient's history, and the [employer]IST/PA's documented findings as above. We discussed and formulated the assessment and plan as above with additions as below: Shani reported no real change in myalgias or dyspnea. She continues to have a sense of congestion in her central chest and feels as though her ears are plugged. Inspiratory/expiratory crackles are present posterior lung browne, decreased rhonchi compared to yesterday Respirations nonlabored No sinus tenderness over the frontal or maxillary sinuses Chest x-ray reviewed by myself-residual infiltrate best seen on the lateral view but slightly improved from admission Initially anticipated discharge however patient will require midline or PICC for outpatient antibiotics and line cannot be placed until late afternoon. Discharge delayed until tomorrow. We'll continue antibiotics for total 14 course due to potential for healthcare associated pathogens. Hospital Course Summary Disclaimer: The visit summary below is not to be considered part of the above Progress Note. 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 CTA obtained, which confirmed the infiltrate. Start Cefepime, Vanco. Avoid Levaquin due to allergy. nebs, O2 and monitoring; order Tele. Start sepsis protocol for aggressive monitoring and IV antibiotic therapy. Prednisone increased from 7.5 mg to 20 mg daily. She appears fluid overloaded-Will provide single dose of IV Lasix and replace potassium. May need to restart home Lasix if BP remains stable. Prior echo OK. Will hold off on additional IVF for now, but may need to add supportive IVF given risk of infection. Continue home medications as appropriate for chronic pain. Continue PPI for GERD. Lovenox for DVT px. Full code was confirmed by daughter. 09/18/17 No recurrent fever overnight, clinically improving although white count is higher and left shift now present. Continue cefepime/vancomycin in conjunction with breathing treatments. Oxygenating adequately with 2 L supplemental O2. Chest x-ray in a.m. to assess volume status. Potassium adequately supplemented-borderline high this morning. Home pain medication regimen resumed late yesterday, continue. Minor elevation in transaminases, monitor periodically-suspect chronic. 09/19/17 Leukocytosis improving 20.5-->13.2. CXR this am is stable. (No new or worsening infiltrates.) Continue cefepime/vancomycin (Day #3) in conjunction with breathing treatments. Anticipate beginning to taper prednisone tomorrow if pt's condition permits Add PT/OT 09/20/17 Leukocytosis resolved with WBC of 9.1 this am. Continue cefepime/vancomycin (Day #4) in conjunction with breathing treatments. Add acapella. MRSA nasal swab positive - add Bactroban nasal. Currently off O2 maintaining 90-92% at rest. Prednisone increased to 20 mg daily on admission due to chronic use; decrease to 15mg today. 09/21/17 Continue cefepime/vancomycin (Day #5) in conjunction with breathing treatments. She reports the acapella has really been helping. Currently off O2 maintaining 89-90% at rest. Patient will discharge tomorrow to senior living at [facility]. Get PICC line placed. Plan to start Bactrim DS, one pill twice a day in place of vancomycin on discharge and continue cefepime IV. We'll continue both of these medications for another 10 days. She'll need to complete her five-day course of mupirocin as well. (Continue through 09/26/17.) Decrease prednisone to 10mg on 09/26. On 09/30, resume chronic prednisone dose of 5 mg a.m., 2.5 mg p.m. Extended care plan orders have been completed.
[2017-09-21] MEDS: MULTI-VITAMIN PLAIN TABLET PO SCH (18:05)
[2017-09-21 18:24] VITALS: RESP 16
[2017-09-21] MEDS: HYDROCODONE/APAP 10 MG/325 MG TABLET PO SCH (21:18)
[2017-09-21] MEDS: MIRABEGRON 25mg TABLET PO SCH (21:19)
[2017-09-22] MEDS: CEFEPIME 1 GM in NS 50 ML IV SCH ×2 (02:27→08:52)
[2017-09-22] MEDS: OMEPRAZOLE 20 MG CAPSULE PO SCH (06:11)
[2017-09-22] MEDS: CYCLOBENZAPRINE 10 MG TABLET PO PRN (06:11)
[2017-09-22] MEDS: ALBUTEROL/IPRATROPIUM 2.5mg-0.5mg/3ml NEB AEROSOL SCH ×2 (07:08→10:40)
[2017-09-22 07:12] VITALS: O2SAT 97
[2017-09-22 07:38] VITALS: BP 163/74; TEMP 97.4
[2017-09-22] MEDS: ASPIRIN *EC* 81 MG TABLET PO SCH (08:48)
[2017-09-22] MEDS: ENOXAPARIN 40 MG/0.4 ML INJECTION SQ SCH (08:48)
[2017-09-22] MEDS: FERROUS SULFATE 324 MG TABLET PO SCH (08:48)
[2017-09-22] MEDS: CycloSPORINE 0.05% EYE DROPS 4ml EACH EYE SCH (08:49)
[2017-09-22] MEDS: ESCITALOPRAM 10 MG TABLET PO SCH (08:49)
[2017-09-22] MEDS: MUPIROCIN 2% OINTMENT 22gm EA NOSTRIL SCH (08:50)
[2017-09-22] MEDS: LORATADINE 10 MG TABLET PO SCH (08:50)
[2017-09-22] MEDS: CALCIUM CARBONATE 600 MG TABLET PO SCH (08:50)
[2017-09-22] MEDS: FUROSEMIDE 40 MG TABLET PO SCH (08:50)
[2017-09-22] MEDS: PredniSONE 10 MG TABLET PO SCH (08:51)
[2017-09-22] MEDS: POLYETHYL GLYCOL 3350 17gm PACKET PO SCH (08:51)
[2017-09-22] MEDS: FOLIC ACID 1 MG TABLET PO SCH (08:52)
[2017-09-22 09:04] VITALS: PULSE 72
[2017-09-22] MEDS: HYDROCODONE/APAP 10 MG/325 MG TABLET PO PRN (09:49)
[2017-09-22] MEDS: DOCUSATE SODIUM 100 MG CAPSULE PO SCH (11:16)
[2017-09-22] MEDS: ALLOPURINOL 300 MG TABLET PO SCH (11:18)
--- NOTE | 2017-09-22 19:15 | Discharge Summary ---
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 Chemistries unremarkable, AST 56, ALT 50. ProBNP 522 On 09/18 procalcitonin 7.01, white count 20.5 with 72 neutrophils, 23 bands. Repeat procalcitonin on 09/21 with 0.6. Respiratory viral panel was negative and nasal swab for MRSA positive 09/22/17 04:30 09/22/17 04:30 - Microbiology Blood cultures 2 negative after 5 days. - Radiology Radiology: Chest x-ray on admission revealed lower lobe pneumonia (versus aspiration) Follow-up chest x-ray 09/19 demonstrated minimal-change although on 09/21 slight improvement was reported CTA of the chest with pulmonary emboli protocol on 09/17: Pulmonary arteries: Exam is diagnostic to the subsegmental pulmonary arterial level. No filling defects identified to suggest a pulmonary embolus. Other findings: Airspace consolidation in both lower lobes, left greater than right. Small amounts of airspace disease in the right middle lobe as well. No pneumothorax or pulmonary mass. No axillary or mediastinal adenopathy. Heart size is normal. No pericardial effusion. The upper abdomen shows no acute findings. Impression: No pulmonary embolus. Lower lobe pneumonia or aspiration. History of Present Illness HPI: Shani is a pleasant 67 yo WF who resides in a NH due to chronic disability from severe RA. She reports not feeling well that started fairly suddenly last night. Reports onset of fever, as well as vomiting and cough. She presented to the ED today, where concern for pneumonia was identified. She is being admitted for further evaluation and treatment. 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 Fidencio Malloy for pulmonology. She has RA, Rheumatoid lung disease, and Sjogrens and follows with Dr. Mona Zavala. She has not been on injectables for her autoimmune conditions for the last 6-7 years as they were no longer effective. I d/w pt family. Pt. did have influenza A at the end of July- she was really fairly asymptomatic. She only had a fever, but no cough or other symptoms. Daughter reports that she has been very weak the last week- she normally transfers well, but has difficulty transferring and has not been able to leave the NH. She has also been c/o increasing fatigue as well. Patient was unable to determine if fever and cough began before vomiting or not "it all started at once." Daughter confirmed that she and pt are DPOA; Patient is a full code. Objective Vital signs: Temperature 97.4 F 09/22/17 07:00 Pulse Rate 72 09/22/17 08:00 Respiratory Rate 16 09/22/17 10:41 Blood Pressure 163/74 H 09/22/17 07:00 Pulse Oximetry 97 09/22/17 10:41 NAD, alert Respirations nonlabored, breath sounds are slightly coarse in the right upper anterior field; Inspiratory crackles posteriorly up 2/3s the lung browne; no wheezing appreciated Height/Weight/BMI: Height 1.47 m Weight 88.3 kg Body Mass Index 42.0 Hospital Course This is a general summary of the patient's hospital course. For more details refer to the complete medical record. 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 Wang was admitted with hypoxia and pneumonia. CTA obtained without evidence of PE however confirmed presence of infiltrates as suggested on chest x-ray. Start Cefepime, Vanco for healthcare associated exposures. Avoid Levaquin due to allergy. Breathing treatments initiated; initial lactic acid 2.2 repeating 1.7 after fluids in the emergency room. Prednisone increased from 7.5 mg to 20 mg daily due to chronic steroid use/ stress. She appears fluid overloaded-Will provide single dose of IV Lasix and replace potassium. May need to restart home Lasix if BP remains stable. Prior echo OK. Will hold off on additional IVF for now, but may need to add supportive IVF given risk of infection. Continue home medications as appropriate for chronic pain. Continue PPI for GERD. Lovenox for DVT px. Full code was confirmed by daughter. 09/18/17 No recurrent fever overnight, clinically improving although white count is higher and left shift now present. Continue cefepime/vancomycin in conjunction with breathing treatments. Oxygenating adequately with 2 L supplemental O2. Chest x-ray in a.m. to assess volume status. Potassium adequately supplemented-borderline high this morning. Home pain medication regimen resumed late yesterday, continue. Minor elevation in transaminases, monitor periodically-suspect chronic. 09/19/17 Leukocytosis improving 20.5-->13.2. CXR this am is stable. (No new or worsening infiltrates.) Continue cefepime/vancomycin (Day #3) in conjunction with breathing treatments. Anticipate beginning to taper prednisone tomorrow if pt's condition permits Add PT/OT 09/20/17 Leukocytosis resolved with WBC of 9.1 this am. Continue cefepime/vancomycin (Day #4) in conjunction with breathing treatments. Add acapella. MRSA nasal swab positive - add nasal Bactroban. Currently off O2 maintaining 90-92% at rest. Prednisone increased to 20 mg daily on admission due to chronic use; decrease to 15mg today. 09/21/17 Continue cefepime/vancomycin (Day #5) in conjunction with breathing treatments. She reports the acapella has really been helping. Currently off O2 maintaining 89-90% at rest. Patient will discharge tomorrow to [facility] at [facility]. Get PICC line placed. Plan to start Bactrim DS, one pill twice a day in place of vancomycin on discharge and continue cefepime IV. We'll continue both of these medications for another 10 days (through 09/30/17). She'll need to complete her five-day course of mupirocin as well. (Continue through 09/26/17.) Decrease prednisone to 10mg on 09/26. On 09/30, resume chronic prednisone dose of 5 mg a.m., 2.5 mg p.m. 09/22/17 Doing well today, reports that her breathing feels 90% better than it did on admission. Myalgias/arthralgias slightly above baseline but improved from admission. Requiring minimal oxygen-oxygen saturation-- 92-97% on 0.5 L per nasal cannula. Midline catheter placed yesterday for IV antibiotics at [facility]. Stable for discharge with plans as described yesterday-continue antibiotics through 09/30. With Bactrim will assess BMP early next week to exclude renal dysfunction or hyperkalemia. To follow-up with Dr. Gallagher in one week. Resuscitation Status: Full Code Discharge Plan - Discharge Disposition Discharge Date: 09/21/17 Disposition: 03 To [facility] Not [facility] [place] *Condition: Stable Reason For Visit (Visit label in EMR): sepsis - Discharge Medications *Discharge Medications: New Mupirocin Ointment [Bactroban Ointmment] 1 applicatio EA NOSTRIL BID 5 Days tube Nitroglycerin [Nitrostat] 0.4 mg SL Q5MIN3 PRN tab PRN Reason: Chest Pain PredniSONE [Deltasone 10 mg] 15 mg PO WB tab Albuterol/Ipratropium [Duoneb] 3 ml AEROSOL RTQID each Cefepime [Maxipime] 1 gm IV Q6H ml Sulfamethox/Tmp [Bactrim Ds] 1 tab PO BID #20 tab Continue Benzonatate [Tessalon Perles] 100 mg PO TID PRN PRN Reason: Cough Ondansetron HCl [Zofran] 4 mg PO Q6H PRN PRN Reason: Nausea &/Or Vomiting Albuterol/Ipratropium [Duoneb] 1 unit AEROSOL Q4H PRN PRN Reason: Prn Orders Acetaminophen [Acetaminophen Extra Strength] 500 mg PO Q6H PRN PRN Reason: Pain Magnesium Hydroxide [Milk of Magnesia] 2,400 mg PO DAILY PRN PRN Reason: Constipation Cyclobenzaprine [Flexeril] 10 mg PO TID PRN PRN Reason: Prn Orders Omeprazole 20 mg PO ACB Alendronate [Fosamax] 70 mg PO Q7D Mirabegron [Myrbetriq] 25 mg PO HS Babb-3/Dha/Epa/Fish Oil [Fish Oil 1,000 mg Softgel] 1,000 mg PO HS HydrOXYzine [Atarax] 25 mg PO HS Multivitamin [One Daily] 1 tab PO WS Hydroxychloroquine [Plaquenil] 200 mg PO QAM Hydroxychloroquine [Plaquenil] 100 mg PO PM Docusate Sodium [Colace] 100 mg PO NOON Allopurinol [Zyloprim] 300 mg PO NOON Escitalopram Oxalate [Lexapro] 10 mg PO DAILY Ferrous Sulfate [Iron] 325 mg PO WB Furosemide [Lasix 40 mg Tab] 40 mg PO DAILY Cholecalciferol (Vitamin D3) [Vitamin D3] 1,000 unit PO DAILY Peg 3350 238 G Bottle [Miralax] 8.6 gm PO DAILY Metoprolol Succinate [Toprol Xl] 25 mg PO DAILY Folic Acid [Folate] 1 mg PO DAILY Aspirin [Aspirin EC] 81 mg PO DAILY Carboxymethylcellulose Sodium [Refresh Tears] 15 ml OP PRN PRN PRN Reason: Dry Eyes cycloSPORINE [Restasis Multidose] 1 drops EACH EYE BID Hydrocodone/APAP 10/325 [Milmay 10/325] 2 tab PO HS #30 tab Morphine Sulfate 30 mg PO Q3H PRN #30 tab PRN Reason: Pain Morphine Sulfate [Morphine Sulfate ER] 60 mg PO BID #30 tablet.er Methyl Salicylate/Menthol [Icy Hot Cream] 1 applicatio TP BID PRN PRN Reason: Pain Calcium Carbonate 600 mg PO BID Loratadine [Claritin] 10 mg PO DAILY PE/Shark Liver Oil/Glyc/Wh.pet [Hemorrhoidal Cream] 1 applicatio RECTALLY QID PRN PRN Reason: Hemorrhoids Hydrocodone/APAP 10/325 [Milmay 10/325] 2 tab PO Q4H PRN #30 tab PRN Reason: Pain Discontinued PredniSONE [Deltasone 5 mg] 5 mg PO QAM PredniSONE [Deltasone 2.5 mg] 2.5 mg PO PM Nitrofurantoin. [Macrobid] 100 mg PO DAILY cycloSPORINE [Restasis Multidose] 1 drops EACH EYE TID Peg 3350 238 G Bottle [Miralax] 17 gm PO DAILY PRN PRN Reason: Constipation - Discharge Packet/Instructions *Diet: Regular diet with 3 gram sodium restriction *Activity: as tolerated. Per PT/OT. *Pain Management/Treatment: per AUG *Wound Care: per protocol Additional Instructions: continue bactrim and cefipime x 9 days (discontinue after doses 09/30). Continue Mupirocin through 09/26/17. *Expected Signs/Symptoms: slow improvement in cough and breathing and stength *Notify Physician if: you develop fever or increasing shortness of breath *During Business Hours Contact: Your nurse at [facility]. *After Business Hours Contact: Your nurse at [facility]. *Pending Lab/Results: No Pending Lab - Referrals/Follow Up *Referrals/Follow Up: Naomi Gallagher MD [Family Provider] - 1 Week - Patient Handouts Patient Handouts: Sepsis (GEN) - Dismissal Complete Discharge Instructions are:: Complete Physician Narrative - Narrative Attestation Narrative: Date: 09/22/17 Time: 1911
== END 2017-09-22 12:55 | DRG 871 ==
LOC: ED 12:15 → MED 14:39
PROVIDERS: ADMIT Internal Medicine; ATTEND Internal Medicine